=== PATIENT | female | born 1960 | race Caucasian/White ===

== ENCOUNTER 2016-10-08 19:02 | Inpatient (IN) | payer OTHER ==
[~2016-10-08] VITALS: Ht 162.6 cm; Wt 83.5 kg
[~2016-10-08 19:02] MED LIST: LEVO125T3 PO
[2016-10-08 19:06] VITALS: BP 109/66; PULSE 97; RESP 14; TEMP 98.9; O2SAT 98
[2016-10-08 19:40] VITALS: O2SAT 97
--- NOTE | 2016-10-08 19:42 | PD ---
HPI Chief Complaint: Skin Problem Time Seen by Provider: 19:38 Travel History International Travel<30 days: No Contact w/Intl Traveler<30days: No Traveled to known affect area: No History of Present Illness HPI 56-year-old right-hand dominant female with PMH of hypothyroidism, MRSA presents to the ED for evaluation of right elbow pain and swelling. Patient states that she bumped her elbow on 10/02. She states that she thought very little of it, next day when she woke up and the elbow was red and swollen. She states that she went to [facility] on 09/03, was diagnosed with cellulitis, administered a tetanus immunization and prescribed Augmentin and Bactrim. She states that she had x-rays at the time that showed no bony injury. She endorses compliance with the antibiotics but states that the redness has spread. She endorses feeling "achy" and decreased appetite. She denies fever, chills, nausea, vomiting, numbness, tingling, weakness, limitations to range of motion of the extremity. She denies chronic health proms, takes no daily medications. NKDA. PFSH Past Medical History Thyroid Disease: Yes (HYPOACTIVE) Influenza Vaccination: No ?: Not : 1 Para: 1 Past Surgical History Surgical History: No Previous Surgery Section: Yes Social History Alcohol Use: Yes (OCC) Tobacco Use: Yes (1/2 PPD) Substance Use: No Allergies-Medications (Allergen,Severity, Reaction): Coded Allergies: No Known Allergies (Unverified , 10/08/16) Reported Meds & Prescriptions Reported Meds & Active Scripts Active Levothyroxine 125 mcg (Levothyroxine Sodium) 125 Mcg Tab 125 Mcg PO DAILY Review of Systems Except as stated in HPI: all other systems reviewed are Neg Physical Exam Narrative GENERAL: Well-nourished, well-developed white female no acute distress. SKIN: Focused skin assessment warm/dry. There is an edematous area in the right posterior elbow which measures about 4 cm in diameter. There is a subcentimeter crust on the posterolateral aspect of the elbow. It is fluctuant but there is no pointing or drainage. There is a zone of inflammation measuring . There is tender LAD in the right axilla. HEAD: Normocephalic. EYES: No scleral icterus. No injection or drainage. NECK: Supple, trachea midline. No JVD or lymphadenopathy. CARDIOVASCULAR: Regular rate and rhythm without murmurs, gallops, or rubs. RESPIRATORY: Breath sounds equal bilaterally. No accessory muscle use. GASTROINTESTINAL: Abdomen soft, non-tender, nondistended. MUSCULOSKELETAL: No cyanosis, or edema. FOCUSED RIGHT UPPER EXTREMITY EXAM: 2+ radial pulse. TTP of the posterior elbow. Patient retains full, active ROM of the hand, wrist and elbow. Sensation intact to light touch distally. Cap refill less than 2 seconds. BACK: Nontender without obvious deformity. No CVA tenderness. Data Data Last Documented VS Vital Signs Date Time Temp Pulse Resp B/P Pulse Ox O2 Delivery O2 Flow Rate FiO2 10/08/16 19:40 97 Room Air 10/08/16 19:06 98.9 97 14 109/66 Orders Basic Metabolic Panel (Bmp) (10/08/16 19:36) Complete Blood Count With Diff (10/08/16 19:36) Iv Access Insert/Monitor (10/08/16 19:36) Ketorolac Inj (Toradol Inj) (10/08/16 19:45) Clindamycin Inj (Cleocin Inj) (10/08/16 19:45) Sodium Chlor 0.9% 1000 Ml Inj (Ns 1000 M (10/08/16 19:45) Ecg Monitoring (10/08/16 19:36) Oximetry (10/08/16 19:36) Elbow, Limited (Ap&Lat) (10/08/16 20:35) Blood Culture (10/08/16 21:19) Lactic Acid (10/08/16 21:20) Admit Order (Ed Use Only) (10/08/16 21:39) Labs Laboratory Tests Test 10/08/16 19:55 White Blood Count 17.6 TH/MM3 Red Blood Count 4.26 MIL/MM3 Hemoglobin 14.0 GM/DL Hematocrit 40.8 % Mean Corpuscular Volume 95.6 FL Mean Corpuscular Hemoglobin 32.8 PG Mean Corpuscular Hemoglobin 34.3 % Concent Red Cell Distribution Width 13.2 % Platelet Count 317 TH/MM3 Mean Platelet Volume 7.6 FL Neutrophils (%) (Auto) 84.2 % Lymphocytes (%) (Auto) 7.3 % Monocytes (%) (Auto) 7.9 % Eosinophils (%) (Auto) 0.3 % Basophils (%) (Auto) 0.3 % Neutrophils # (Auto) 14.8 TH/MM3 Lymphocytes # (Auto) 1.3 TH/MM3 Monocytes # (Auto) 1.4 TH/MM3 Eosinophils # (Auto) 0.1 TH/MM3 Basophils # (Auto) 0.0 TH/MM3 CBC Comment DIFF FINAL Differential Comment Sodium Level 134 MEQ/L Potassium Level 3.3 MEQ/L Chloride Level 98 MEQ/L Carbon Dioxide Level 24.5 MEQ/L Anion Gap 12 MEQ/L Blood Urea Nitrogen 9 MG/DL Creatinine 0.91 MG/DL Estimat Glomerular Filtration 64 ML/MIN Rate Random Glucose 133 MG/DL Calcium Level 9.4 MG/DL MDM Medical Decision Making Medical Screen Exam Complete: Yes Emergency Medical Condition: Yes Medical Record Reviewed: Yes Differential Diagnosis Abscess versus cellulitis versus bursitis versus septic bursitis versus hematoma versus fracture versus other Narrative Course 56-year-old right-hand dominant female with PMH of hypothyroidism, MRSA presents to the ED for evaluation of right elbow pain and swelling. Patient states that she bumped her elbow on 10/02. She states that the next day when she woke up the elbow was red and swollen. She states that she went to [facility] on 09/03, diagnosed with cellulitis, administered a tetanus immunization and prescribed Augmentin and Bactrim. She states that she had x- rays at the time that showed no bony injury. She endorses compliance with the antibiotics but states that the redness has spread. She endorses feeling "achy. " She denies fever, chills, nausea, vomiting, numbness, tingling, weakness, limitations to range of motion of the extremity. Vitals reviewed. Physical exam reveals a nontoxic-appearing white female in no acute distress. There is an edematous area in the right posterior elbow which measures about 4 cm in diameter. There is a subcentimeter crust on the posterolateral aspect of the elbow. It is fluctuant but there is no pointing or drainage. There is a zone of inflammation measuring 45 cm at the greatest point, spanning from the wrist to the midhumerus. There is tender LAD in the right axilla. Patient retains full, active, painless range of motion of the extremity. IV was established. Blood cultures were obtained. Patient was administered a liter normal saline and 900 mg clindamycin. CBC shows a leukocytosis of 17.6 with a left shift. Lactic acid pending. X-ray of the elbow reveals soft tissue swelling with no bony injury per radiology read. The patient meets sepsis criteria. This is cellulitis versus septic bursitis of the elbow. Plan to admit to medicine. Discussed this plan of care with the patient who is agreeable. Call placed to [facility]. I spoke with Dr. Gallagher who agrees to accept the patient to the medical service. Please see medicine notes for disposition. Sepsis Criteria SIRS Criteria (2 or more): Heart rate over 90, WBC > 24776, < 4000 or > 10% bands Sepsis Criteria (SIRS+source): Infect source susp/known Criteria Outcome: Meets sepsis criteria Caroline Jaime October 08, 2016 19:42
[2016-10-08] MEDS ORDERED: CLINDAMYCIN INJ 900 MG in SODIUM CHLORIDE 0.9% INJ 100 ML IV ONE (19:45)
[2016-10-08] MEDS ORDERED: SODIUM CHLOR 0.9% 1000 ML INJ 1,000 ML IV ONE (19:45)
[2016-10-08] MEDS ORDERED: KETOROLAC TROMETHAMINE 30 MG/ML (IVP) VIAL IVP ONE (19:45)
[2016-10-08 20:25] LABS: AUTOMATED NEUTROPHIL # 14.8 TH/MM3 (1.8-7.7); BASOPHIL % 0.3 % (0.0-2.0); EOSINOPHIL # 0.1 TH/MM3 (0-0.4); EOSINOPHIL % 0.3 % (0.0-4.0); HEMATOCRIT 40.8 % (35.0-46.0); HEMO FLAGS DIFF FINAL; LYMPH % 7.3 % (9.0-44.0); LYMPHOCYTE # 1.3 TH/MM3 (1.0-4.8); MEAN CELL VOLUME 95.6 FL (80.0-100.0); MEAN CORPUSCULAR HEMOGLOBIN 32.8 PG (27.0-34.0); MEAN CORPUSCULAR HGB CONC 34.3 % (32.0-36.0); MONO % 7.9 % (0.0-8.0); NEUT % 84.2 % (16.0-70.0); PLATELET COUNT 317 TH/MM3 (150-450); RED BLOOD COUNT 4.26 MIL/MM3 (4.00-5.30); RED CELL DISTRIBUTION WIDTH 13.2 % (11.6-17.2); WHITE BLOOD COUNT 17.6 TH/MM3 (4.0-11.0)
[2016-10-08 20:47] LABS: BICARBONATE 24.5 MEQ/L (21.0-32.0); POTASSIUM 3.3 MEQ/L (3.5-5.1)
--- NOTE | 2016-10-08 21:06 | RADRPT ---
EXAM DATE/TIME: 10/08/2016 20:52 [facility] COMPARISON: No previous studies available for comparison. INDICATIONS : Right elbow pain and swelling. Patient states she hit her elbow on the car door six days ago. MEDICAL HISTORY : None. SURGICAL HISTORY : None. ENCOUNTER: Initial ACUITY: 4 - 6 days PAIN SCORE: 7/10 LOCATION: Right elbow. FINDINGS: There is prominent soft tissue swelling over the lateral. No evidence of underlying fracture, disloca tion or bony destruction. No joint effusion is present. CONCLUSION: Soft tissue swelling. No acute bony findings Zhou Lozano MD on October 08, 2016 at 21:03 Board Certified Radiologist. This report was verified electronically.
[2016-10-08] MEDS ORDERED: NALOXONE HCL 0.4 MG/ML AMP IV PRN (22:00)
[2016-10-08] MEDS: PIPERACIL-TAZO 4.5 GM PREMIX 100 ML IV SCH (22:00)
[2016-10-08] MEDS ORDERED: POTASSIUM CHLORIDE 20 MEQ CONTROLLED RELEASE TAB PO ONE (22:00)
[2016-10-08] MEDS ORDERED: Vancomycin Consult Pharmacy 1 EA OTHER SCH (22:00)
[2016-10-08] MEDS ORDERED: SODIUM CHLORIDE 0.9% FLUSH 10 ML FLUSH IV FLUSH PRN (22:00)
[2016-10-08 23:04] VITALS: BP 115/70; PULSE 80; RESP 16; TEMP 98.4; O2SAT 98
[2016-10-09] VITALS (9 sets, daily range): BP systolic 93–110; BP diastolic 51–71; PULSE 59–99; RESP 20; TEMP 96.9–99.9; O2SAT 95–98
[2016-10-09] MEDS ORDERED: VANCOMYCIN INJ 1,400 MG in SODIUM CHLORID 0.9% 500 ML INJ 500 ML IV ONE ×2
[2016-10-09] MEDS ORDERED: SODIUM CHLOR 0.9% 1000 ML INJ 1,000 ML IV SCH (01:00)
[2016-10-09] MEDS: ACETAMINOPHEN 500 MG CPLT PO PRN ×4 (01:10→21:51)
--- NOTE | 2016-10-09 04:35 | HHI.HP ---
HPI Service [facility] Primary Care Physician No Primary Care Physician Admission Diagnosis sepsis, cellulitis versus septic bursitis RIGHT elbow Diagnoses: Chief Complaint: Worsening edema and erythema of right elbow Travel History International Travel<30 Days: No Contact w/Intl Traveler <30 Da: No Traveled to Known Affected Are: No History of Present Illness This 56-year-old female patient with past medical history which includes MRSA and hypothyroidism. Patient reports she bumped her elbow on her car door last , 10/02/2016. Patient reports he bump resulted in a, "little tiny cut," but she did not think much of it at that time. Patient reports three days later the right elbow was becoming more edematous with erythema and pain therefore she was seen at outside hospital Thursday was given a tetanus shot and started on Bactrim and Augmentin. Patient reports she's been compliant with both Bactrim and Augmentin despite this the Erythema, edema and pain continued to get worse therefore she proceeded to the ER for further evaluation. Patient did have MRSA in the past. Patient also reports mild generalized myalgia. Patient is noted to have erythema of the right arm from wrist to axilla with edema. Patient does have intact sensation and brisk cap refill and full range of motion. Patient reports the pain feels more like a mild to moderate tightness. Patient believes the erythema has gotten slightly better after antibiotics given in emergency department. Patient denies fevers chills nausea vomiting diarrhea constipation shortness of breath or chest pain. Review of Systems Except as stated in HPI: all other systems reviewed are Neg Past Family Social History Past Medical History MRSA and hypothyroidism. Past Surgical History tonsillectomy, C section Reported Medications Levothyroxine 125 mcg (Levothyroxine Sodium) 125 Mcg Tab 125 Mcg PO DAILY Allergies: Coded Allergies: *MDRO Multi-Drug Resistant Organism (Verified Adverse Reaction, Unknown, ) MRSA (wound)-12/27/13 Active Ordered Medications Current Medications Medications (Trade) Dose Ordered Sig/Woo Route Start Time Stop Time Status Last Admin (NS Flush) 2 ml UNSCH PRN IV FLUSH 10/08/16 22:00 (NS Flush) 2 ml BID IV FLUSH 10/09/16 09:00 Naloxone HCl 0.4 mg 0.4 mg UNSCH PRN IV 10/08/16 22:00 Pharmacy Profile Note 0 ml @ 0 mls/hr UNSCH OTHER 10/08/16 22:00 (Zosyn 4.5 Gm Premix) 100 ml @ 200 mls/hr Q6H IV 10/08/16 22:00 10/09/16 04:44 Acetaminophen 500 mg 500 mg Q6H PRN PO 10/09/16 01:00 10/09/16 01:10 (NS 1000 ml Inj) 1,000 ml @ 84 mls/hr [id number] IV 10/09/16 01:00 10/09/16 12:54 10/09/16 01:10 (Synthroid) 125 mcg DAILY@06 PO 10/09/16 06:00 10/09/16 05:36 Family History Father had colon CA and, "heart problems" Mother had dementia Social History ETOH social not on a daily basis Tobacco 0.5 PPD denies IV drug use Physical Exam Vital Signs Vital Signs Date Time Temp Pulse Resp B/P Pulse Ox O2 Delivery O2 Flow Rate FiO2 10/09/16 01:20 97.3 84 20 98/64 98 10/08/16 23:04 98.4 80 16 115/70 98 Room Air 10/08/16 19:40 97 Room Air 10/08/16 19:06 98.9 97 14 109/66 98 Room Air Physical Exam GENERAL: This is a well-nourished, well-developed patient, with severe edema erythema of right upper extremity from rest to axilla SKIN: edema erythema of right upper extremity from rest to axilla HEAD: Atraumatic. Normocephalic. No temporal or scalp tenderness. EYES: Extraocular motions intact. No scleral icterus. No injection or drainage. CARDIOVASCULAR: Regular rate and rhythm without murmurs, gallops, or rubs. RESPIRATORY: Clear to auscultation. Breath sounds equal bilaterally. No wheezes , rales, or rhonchi. GASTROINTESTINAL: Abdomen soft, non-tender, nondistended. No guarding. MUSCULOSKELETAL: Extremities without clubbing, cyanosis, or edema. No joint tenderness, effusion, or edema noted. No calf tenderness. Negative Homans sign bilaterally. NEUROLOGICAL: Awake and alert. No focal deficits identified. Patient does have intact sensation right upper extremity with full range of motion. Motor and sensory grossly within normal limits. Five out of 5 muscle strength in all muscle groups. Normal speech. Laboratory Laboratory Tests Test 10/08/16 10/08/16 19:55 20:25 White Blood Count 17.6 Red Blood Count 4.26 Hemoglobin 14.0 Hematocrit 40.8 Mean Corpuscular Volume 95.6 Mean Corpuscular Hemoglobin 32.8 Mean Corpuscular Hemoglobin 34.3 Concent Red Cell Distribution Width 13.2 Platelet Count 317 Mean Platelet Volume 7.6 Neutrophils (%) (Auto) 84.2 Lymphocytes (%) (Auto) 7.3 Monocytes (%) (Auto) 7.9 Eosinophils (%) (Auto) 0.3 Basophils (%) (Auto) 0.3 Neutrophils # (Auto) 14.8 Lymphocytes # (Auto) 1.3 Monocytes # (Auto) 1.4 Eosinophils # (Auto) 0.1 Basophils # (Auto) 0.0 CBC Comment DIFF FINAL Differential Comment Sodium Level 134 Potassium Level 3.3 Chloride Level 98 Carbon Dioxide Level 24.5 Anion Gap 12 Blood Urea Nitrogen 9 Creatinine 0.91 Estimat Glomerular Filtration 64 Rate Random Glucose 133 Calcium Level 9.4 Lactic Acid Level 0.8 Date/Time Procedure Status Source Growth 10/08/16 20:25 Aerobic Blood Culture Received Blood Line Pending 10/08/16 20:25 Anaerobic Blood Culture Received Blood Line Pending Result Diagram: 10/08/16195410/08/161954 Imaging Last Impressions Elbow X-Ray 10/08/162034 Signed Impressions: Service Date/Time: Saturday, October 08, 2016 20:52 - CONCLUSION: Soft tissue swelling. No acute bony findings Zhou Lozano MD Assessment and Plan Problem List: (1) Cellulitis ICD Code: L03.90 Status: Acute Assessment and Plan This 56-year-old female patient with past medical history which includes MRSA and hypothyroidism. Patient reports she bumped her elbow on her car door last , 10/02/2016. Patient reports he bump resulted in a, "little tiny cut," but she did not think much of it at that time. Patient reports three days later the right elbow was becoming more edematous with erythema and pain therefore she was seen at outside hospital Thursday was given a tetanus shot and started on Bactrim and Augmentin. Patient reports she's been compliant with both Bactrim and Augmentin despite this the Erythema, edema and pain continued to get worse therefore she proceeded to the ER for further evaluation. Patient did have MRSA in the past. Patient also reports mild generalized myalgia. Patient is noted to have erythema of the right arm from wrist to axilla with edema. Patient denies fevers chills nausea vomiting diarrhea constipation shortness of breath or chest pain. R upper extremity cellulitis possible abscess Leukocytosis CT right upper extremity with IV contrast to evaluate for abscess Right elbow x-ray reveals: Soft tissue swelling. No acute bony findings Clindamycin IV and Vanco IV started in emergency department will continue IV vancomycin with pharmacy to dose Will add Zosyn IV Hypokalemia replaced Recheck this a.m. Hypothyroidism chronic stable Continue home Synthroid dose 0.125 mg by mouth daily DVT prophylaxis with SCDs Discussed with care provider, nursing inpatient Written by Swati Mccallum, acting as scribe for Dr. Gallagher on 10/09/16 at 05: 56. This note was transcribed by scribe [Swati Mccallum]. I, Dr. Eladio Gallagher personally performed the history, physical exam, and medical decision making; and confirmed the accuracy of the information in the transcribed note. Authenticated by Dr. Eladio Gallagher on 10/09/16 at 05:56. Physician Certification 2 Midnight Certification Type: Admission for Inpatient Services Order for Inpatient Services The services are ordered in accordance with Medicare regulations or non- Medicare payer requirements, as applicable. In the case of services not specified as inpatient-only, they are appropriately provided as inpatient services in accordance with the 2-midnight benchmark. Estimated LOS (days): 2 days is the estimated time the patient will need to remain in the hospital, assuming treatment plan goals are met and no additional complications. Post-Hospital Plan: [place] Swati Mccallum October 09, 2016 04:35 Eladio Gallagher MD October 09, 2016 08:28
[2016-10-09] MEDS: PIPERACIL-TAZO 4.5 GM PREMIX 100 ML IV SCH ×4 (04:44→21:50)
[2016-10-09] MEDS: LEVOTHYROXINE SODIUM 125 MCG TAB PO SCH (05:36)
[2016-10-09 07:32] LABS: AUTOMATED NEUTROPHIL # 13.2 TH/MM3 (1.8-7.7); BASOPHIL % 0.2 % (0.0-2.0); EOSINOPHIL # 0.1 TH/MM3 (0-0.4); EOSINOPHIL % 0.5 % (0.0-4.0); HEMATOCRIT 35.7 % (35.0-46.0); HEMO FLAGS DIFF FINAL; LYMPH % 5.9 % (9.0-44.0); LYMPHOCYTE # 0.9 TH/MM3 (1.0-4.8); MEAN CELL VOLUME 96.1 FL (80.0-100.0); MEAN CORPUSCULAR HEMOGLOBIN 32.6 PG (27.0-34.0); NEUT % 83.4 % (16.0-70.0); PLATELET COUNT 285 TH/MM3 (150-450); RED BLOOD COUNT 3.72 MIL/MM3 (4.00-5.30); RED CELL DISTRIBUTION WIDTH 13.1 % (11.6-17.2); WHITE BLOOD COUNT 15.8 TH/MM3 (4.0-11.0)
[2016-10-09 07:55] LABS: BICARBONATE 19.2 MEQ/L (21.0-32.0); POTASSIUM 3.6 MEQ/L (3.5-5.1)
[2016-10-09] MEDS ORDERED: IOHEXOL 350 MG/ML 10 ML VIAL (for RAD DIAG) IV ONE (08:05)
--- NOTE | 2016-10-09 08:23 | RADRPT ---
EXAM DATE/TIME: 10/09/2016 07:55 [facility] COMPARISON: No previous studies available for comparison. INDICATIONS : Right elbow cellulitis, abscess. Redness and swelling IV CONTRAST: 71 cc Omnipaque 350 (iohexol) IV RADIATION DOSE: 11.55 CTDIvol (mGy) MEDICAL HISTORY : None SURGICAL HISTORY : None. ENCOUNTER: Initial ACUITY: 1 day PAIN SCALE: 8/10 LOCATION: Right arm TECHNIQUE: Volumetric scanning of the elbow was performed. Using automated exposure control and adjustment of t he mA and/or kV according to patient size, radiation dose was kept as low as reasonably achievable to obtain optimal diagnostic quality images. FINDINGS: BONES: No evidence of fracture. Alignment is within normal limits. JOINTS: No evidence of joint narrowing or effusion. SOFT TISSUES: Muscles, tendons and neurovascular structures are grossly unremarkable. There is a fluid collection i n the superficial soft tissues posteriorly measuring 3.9 x 6.1 x 1.9 cm. This is seen posterior to th e olecranon and elbow joint. There is cellulitis of the adjacent soft tissues. CONCLUSION: Cellulitis with small abscess along the posterior elbow seen within the posterior soft tissues. Maycol Magana MD on October 09, 2016 at 8:17 Board Certified Radiologist. This report was verified electronically.
[2016-10-09] MEDS: SODIUM CHLORIDE 0.9% FLUSH 10 ML FLUSH IV FLUSH SCH ×2 (09:00→21:00)
--- NOTE | 2016-10-09 09:05 | PD.ORT.PN ---
Subjective Subjective Remarks s/p injury to right elbow on car door approx 1 week ago swelling progressed over time. came to ER today. reports right elbow pain, swelling, redness. Objective Vitals Vital Signs Date Time Temp Pulse Resp B/P Pulse Ox O2 Delivery O2 Flow Rate FiO2 10/09/16 08:31 98.8 81 20 98/55 97 10/09/16 06:14 97.8 79 20 103/70 98 10/09/16 01:20 97.3 84 20 98/64 98 10/08/16 23:04 98.4 80 16 115/70 98 Room Air 10/08/16 19:40 97 Room Air 10/08/16 19:06 98.9 97 14 109/66 98 Room Air I/O 10/08/16 10/08/16 10/08/16 10/09/16 10/09/16 10/09/16 07:00 15:00 23:00 07:00 15:00 23:00 Intake Total 805 ml Balance 805 ml Intake IV Total 805 ml # Voids 2 Result Diagram: 10/09/16 0647 10/09/16 0647 Imaging Last 24 hours Impressions Upper Extremity CT 10/09/1603 Signed Impressions: Service Date/Time: September 07:55 - CONCLUSION: Cellulitis with small abscess along the posterior elbow seen within the posterior soft tissues. Maycol Magana MD Elbow X-Ray 10/08/162034 Signed Impressions: Service Date/Time: Saturday, October 08, 2016 20:52 - CONCLUSION: Soft tissue swelling. No acute bony findings Zhou Lozano MD Objective Remarks RUE: significant localized swelling of olecranon. +fluctuance. no drainage. + pain. ROM 5-135deg. pain with maximal extension. noted erythema from posterior triceps extending over olecranon and distally to wrist. NVI. full sensation to median/ulnar nerve. full radial nerve function. Assessment & Plan Assessment and Plan 1) Right Olecranon Abscess -will benefit from I&D -NPO after MN -sign consents -plan for surgery tomorrow Jd Oswald October 09, 2016 09:05
[2016-10-09] MEDS ORDERED: METOPROLOL TARTRATE 25 MG TAB PO PRN (11:15)
[2016-10-09] MEDS ORDERED: LACTATED RINGER'S 1000 ML IV PRN (11:15)
[2016-10-09] MEDS ORDERED: POVIDONE IODINE 5% (ANTISEPSIS KIT) 4 APPLICATIONS EACH NARE PRN (11:15)
[2016-10-09] MEDS ORDERED: CHLORHEXIDINE GLUCONATE 2 % 1 PACK (2 CLOTHS) TOPICAL PRN (11:15)
[2016-10-09] MEDS ORDERED: SODIUM CHLORID 0.9% 500 ML IV PRN (11:15)
[2016-10-09] MEDS ORDERED: INSULIN HUMAN REGULAR 1,000 UNITS/10 ML VIAL SQ PRN (11:15)
--- NOTE | 2016-10-09 12:02 | HHI.PR ---
Subjective Remarks resting comfortably with no distress. no fever. pain to the right elbow is mild. no other complaints. Objective Vitals Vital Signs Date Time Temp Pulse Resp B/P Pulse Ox O2 Delivery O2 Flow Rate FiO2 10/09/16 08:31 98.8 81 20 98/55 97 10/09/16 06:14 97.8 79 20 103/70 98 10/09/16 01:20 97.3 84 20 98/64 98 10/08/16 23:04 98.4 80 16 115/70 98 Room Air 10/08/16 19:40 97 Room Air 10/08/16 19:06 98.9 97 14 109/66 98 Room Air I/O 10/08/16 10/08/16 10/08/16 10/09/16 10/09/16 10/09/16 07:00 15:00 23:00 07:00 15:00 23:00 Intake Total 805 ml Balance 805 ml Intake IV Total 805 ml # Voids 2 Result Diagram: 10/09/16 0647 10/09/16 0647 Imaging Last Impressions Upper Extremity CT 10/09/1603 Signed Impressions: Service Date/Time: September 07:55 - CONCLUSION: Cellulitis with small abscess along the posterior elbow seen within the posterior soft tissues. Maycol Magana MD Elbow X-Ray 10/08/162034 Signed Impressions: Service Date/Time: Saturday, October 08, 2016 20:52 - CONCLUSION: Soft tissue swelling. No acute bony findings Zhou Lozano MD Objective Remarks GENERAL: This is a well-nourished, well-developed patient, in no apparent distress. CARDIOVASCULAR: Regular rate and regular rhythm without murmurs, gallops, or rubs. RESPIRATORY: Clear to auscultation. Breath sounds equal bilaterally. No wheezes , rales, or rhonchi. GASTROINTESTINAL: Abdomen soft, non-tender, nondistended. Normal, active bowel sounds MUSCULOSKELETAL: right elbow is swollen, mildly tender along with erythema over the right arm NEURO: Alert & Oriented x4 to person, place, time, situation. Moves all ext x4 Procedures none Medications and IVs Current Medications Ketorolac Tromethamine 30 mg 30 mg ONCE ONCE IVP Last administered on t 21:28; Start 10/08/16 at 19:45; Stop 10/08/16 at 19:46; Status DC Clindamycin Phosphate 900 mg/ Sodium Chloride 106 ml @ 200 mls/hr ONCE ONCE IV Last administered on 10/08/16 21:30; Start 10/08/16 at 19:45; Stop at 20:16; Status DC Sodium Chloride (NS 1000 ml Inj) 1,000 ml @ 999 mls/hr BOLUS ONCE IV Last administered on 10/08/16 21:28; Start 10/08/16 at 19:45; Stop 10/08/16 at 20:45 ; Status DC Sodium Chloride (NS Flush) 2 ml UNSCH PRN IV FLUSH FLUSH AFTER USING IV ACCESS ; Start 10/08/16 at 22:00 Sodium Chloride (NS Flush) 2 ml BID IV FLUSH ; Start 10/09/16 at 09:00 Naloxone HCl (Narcan Inj) 0.4 mg UNSCH PRN IV SEE LABEL COMMENTS; Start at 22:00 Potassium Chloride 40 meq 40 meq ONCE ONCE PO Last administered on 10/08/16 22:00; Start 10/08/16 at 22:00; Stop 10/08/16 at 22:01; Status DC Pharmacy Profile Note 0 ml @ 0 mls/hr UNSCH OTHER ; Start 10/08/16 at 22:00 Piperacillin Sod/ Tazobactam Sod 100 ml @ 200 mls/hr Q6H IV Last administered on 10/09/16 04:44; Start 10/08/16 at 22:00 Vancomycin HCl/ Sodium Chloride (Vancomycin Inj/ NS 500 ml Inj) 514 ml @ 250 mls/hr ONCE ONCE IV Last administered on 10/09/16 00:35; Start 10/09/16 at 00 :00; Stop 10/09/16 at 02:03; Status DC Acetaminophen 500 mg 500 mg Q6H PRN PO pain 1-10 Last administered on 01:10; Start 10/09/16 at 01:00 Sodium Chloride (NS 1000 ml Inj) 1,000 ml @ 84 mls/hr [id number] IV Last administered on 10/09/16 01:10; Start 10/09/16 at 01:00; Stop 10/09/16 at 12:54 Levothyroxine Sodium (Synthroid) 125 mcg DAILY@06 PO Last administered on t 05:36; Start 10/09/16 at 06:00 Iohexol 70 ml 70 ml STK-MED ONCE IV Last administered on 10/09/16t 08:05; Start 10/09/16 at 08:05; Stop 10/09/16 at 08:06; Status DC Vancomycin HCl/ Sodium Chloride (Vancomycin Inj/ NS 250 ml Inj) 262.5 ml @ 262.5 mls/ hr Q12H IV ; Start 10/09/16 at 14:00 Miscellaneous Information SPECIFIC LAB TO BE ... ONCE ONCE .XX ; Start 10/10 at 13:45; Stop 10/10/16 at 13:46 Lactated Ringer's 1,000 ml @ 30 mls/hr Q24H PRN IV SEE LABEL COMMENTS; Start at 11:15; Stop 10/12/16 at 11:14 Sodium Chloride (NS 500 ml Inj) 500 ml @ 30 mls/hr [id number] PRN IV SEE LABEL COMMENTS; Start 10/09/16 at 11:15; Stop 10/12/16 at 11:14 Metoprolol Tartrate (Lopressor) 25 mg MOBILE ARCHITECT PRN PO SEE LABEL COMMENTS; Start 10/09/16 at 11:15; Stop 10/12/16 at 11:14 Povidone Iodine (Betadine 5% Antisepsis Kit) 1 applic MOBILE ARCHITECT PRN EACH NARE SEE LABEL COMMENTS; Start 10/09/16 at 11:15; Stop 10/12/16 at 11:14 Chlorhexidine Gluconate (Chlorhexidine 2% Cloth) 3 pack MOBILE ARCHITECT PRN TOPICAL SEE LABEL COMMENTS; Start 10/09/16 at 11:15; Stop 10/12/16 at 11:14 Insulin Human Regular (NovoLIN R INJ) See Protocol Table ... MOBILE ARCHITECT PRN SQ SEE PROTOCOL TABLE; Start 10/09/16 at 11:15; Stop 10/12/16 at 11:14 A/P Assessment and Plan A/P R upper extremity cellulitis possible abscess Leukocytosis CT right upper extremity with Cellulitis with small abscess along the posterior elbow seen within the posterior soft tissues. continue with IV Vanco and Zosyn ortho consult appreciated and plan for I/D tomorrow. continue with pain control Hypokalemia replaced Hypothyroidism chronic stable Continue home Synthroid dose 0.125 mg by mouth daily DVT prophylaxis with SCDs Mayte Mcneill MD October 09, 2016 12:02
[2016-10-09] MEDS: VANCOMYCIN INJ 1,250 MG in SODIUM CHLOR 0.9% 250 ML INJ 250 ML IV SCH (15:18)
--- NOTE | 2016-10-09 20:28 | EKG ---
Date Performed: 10/09/2016 Time Performed: 16:13:40 PTAGE: 56 years EKG: Sinus rhythm NORMAL ECG NO PREVIOUS TRACING DOCTOR: Larry Hogan Interpretating Date/Time 10/09/2016 20:26:36
[2016-10-10] VITALS (8 sets, daily range): BP systolic 80–111; BP diastolic 53–69; PULSE 67–89; RESP 20; TEMP 95.3–98.4; O2SAT 96–98
[2016-10-10] MEDS: VANCOMYCIN INJ 1,250 MG in SODIUM CHLOR 0.9% 250 ML INJ 250 ML IV SCH ×2 (02:08→15:30)
[2016-10-10] MEDS: ACETAMINOPHEN 500 MG CPLT PO PRN (03:57)
[2016-10-10] MEDS: PIPERACIL-TAZO 4.5 GM PREMIX 100 ML IV SCH ×4 (03:58→21:00)
[2016-10-10] MEDS ORDERED: SODIUM CHLORID 0.9% 500 ML INJ 500 ML IV SCH (05:15)
[2016-10-10] MEDS: LEVOTHYROXINE SODIUM 125 MCG TAB PO SCH (05:35)
[2016-10-10] MEDS ORDERED: VANCOMYCIN HCL 1000 MG VIAL ONE (07:20)
[2016-10-10] MEDS ORDERED: ceFAZolin INJ 1,000 MG VIAL ONE (07:21)
--- NOTE | 2016-10-10 07:28 | MB ---
cc: MARCOS HUYNH DATE OF ADMISSION 10/08/2016 DATE OF CONSULTATION 10/10/2016 REASON FOR CONSULTATION Right elbow infected bursitis. CONSULTING PHYSICIAN Dr. Mcneill EUNICE Gardiner is a 56-hour-old female who has a previous history of MRSA infections. She also has hypothyroidism. She states that she bumped her elbow on her car approximately one week ago. She had a very small abrasion at that time. Over the past several days she has had increasing pain and swelling. She was seen and outside hospital earlier this week and started on Bactrim and Augmentin. Pain and swelling have worsened. Her only complaint is her right elbow. She feels that it is tight. She does not have a lot of pain with gentle elbow motion. She has had some low grade fevers and chills. PAST MEDICAL HISTORY ILLNESSES 1. Hypothyroidism. 2. Previous infection with MRSA. SURGERIES 1. Tonsillectomy. 2. . MEDICATIONS Levothyroxine. ALLERGIES None. FAMILY HISTORY Positive for colon cancer in her father and dementia in her mother. SOCIAL HISTORY The patient smokes half-pack a day. She denies drug use. She drinks alcohol socially. REVIEW OF SYSTEMS The patient denies headache, visual changes, neck pain, chest pain, shortness of breath, abdominal pain, nausea or recent weight loss. She complains of right elbow pain and stiffness. PHYSICAL EXAMINATION GENERAL: The patient is a well-developed, well-nourished 56-year-old female who is awake and alert. She is alert and oriented x 3. VITAL SIGNS: Temperature 98.0, pulse 80, respirations 20, blood pressure 104/67, O2 sat 98% on room air. HEAD: The patient is normocephalic. Pupils are equal. NECK: Soft, nontender. Trachea is midline. ABDOMEN: Soft, nontender, nondistended. EXTREMITIES: Examination of the right arm reveals no tenderness around her shoulder, wrist or fingers. She has intact sensation in all fingers. She has good capillary refill in all fingers. Examination of her elbow reveals a large area of swelling and redness over the olecranon bursa. There is fluctuance noted. Elbow range of motion is from 20 degrees to 120 degrees with minimal pain. Examination of left arm reveals no pain with shoulder, elbow or wrist motion. Skin is intact. Radial pulses palpable. Sensation is intact. Examination of the bilateral lower extremities reveals no significant pain with hip, knee or ankle motion. Skin is intact. Dorsalis pedis pulses are palpable. X-RAYS X-rays of the right elbow were reviewed. X-rays reveal no evidence of acute fracture or dislocation. IMPRESSION Right elbow septic bursitis. PLAN Treatment options were discussed with the patient. At this point I would recommend irrigation and debridement of right elbow. The risks of surgery include bleeding, infection, injury to arteries, nerves, blood vessels, recurrent infection as well as medical complications associated anesthesia. All questions were answered. I will plan on surgery today. A mid-level provider in my office (nurse practitioner or physician head start assistant teacher) may see this patient on follow-up visits and continue to implement the objectives of this plan including: Starting or adjusting medications, injections , cast application, orthotics, brace application, physical therapy, radiological studies (including x-ray, MRI, CT, ultrasound, bone scan), vascular studies, neurologic studies, specialist consultation, and proceeding with surgical management, as appropriate. MD KVNG Clifton/CHELITA /6:54 AM /7:16 AM SUSANA
[2016-10-10] MEDS ORDERED: GENTAMICIN SULFATE 80 MG/2 ML VIAL ONE (07:36)
[2016-10-10] MEDS ORDERED: FAMOTIDINE 20 MG/2 ML VIAL ONE (07:37)
[2016-10-10] MEDS ORDERED: MIDAZOLAM HCL 2 MG/2 ML VIAL ONE (07:37)
--- NOTE | 2016-10-10 08:41 | PD.OP ---
cc: Sandeep Hills MD Operative Report Date of Surgery: October 10, 2016 Preoperative Diagnosis: Right elbow septic olecranon bursitis Postoperative Diagnosis: Procedure: Irrigation and debridement right elbow abscess excision of olecranon bursa Anesthesia: Gen. Surgeon: Sandeep Hills Large Animal Veterinarian(s): LION Gunter PA-C The surgical procedure was assisted by my physician television production assistant. My P.A. presence was necessary throughout this case for the manipulation and positioning of the surgical extremity. My P.A. was assisting me throughout the duration of this procedure. The skill set of a physician television production assistant was medically necessary to complete this procedure. During the surgical case the director surgical was working at the back table and the physician television production assistant was directly assisting me. Operation and Findings: Patient was seen and evaluated preoperatively. Patient was found to have infection of the olecranon bursa. Fluctuance and erythema were noted. Informed consent was obtained after detailed discussion of risk and benefits of surgery. Operative site was marked. Patient was brought to the operating room. IV sedation and GETA were administered by anesthesiologist. Operative arm was prepped with alcohol followed by Hibiclens and draped in usual sterile fashion. Timeout procedure was performed. Procedure began with a 4 cm incision over the olecranon bursa. Subcutaneous tissue dissected with Bovie. A large pocket of purulent material was found. Specimen was obtained for cultures and sensitivities. Curettes and rongeurs were now used to sharply debride the olecranon bursa. Curettes were also used to debride the olecranon. After excisional debridement was complete, the wound was thoroughly irrigated with sterile saline. At this point the wound was clean. Subcutaneous tissues closed with 3-0 PDS and skin was closed with 3-0 nylon. A LALITA drain was placed into the wound. Sterile dressings were applied. Patient was awakened and transferred to recovery in stable condition. Needle and sponge counts were correct. Sandeep Hills MD October 10, 2016 08:41
[2016-10-10] MEDS ORDERED: Post-op Orders (for Pharmacy) MISC XX ONE (08:45)
[2016-10-10] MEDS ORDERED: ONDANSETRON HCL 4 MG/2 ML VIAL IVP PRN (08:45)
[2016-10-10] MEDS ORDERED: SODIUM CHLORIDE 0.9% FLUSH 5 ML FLUSH IVF PRN (08:45)
[2016-10-10] MEDS ORDERED: MORPHINE SULFATE 4 MG/ML INJ IV PUSH PRN (08:45)
[2016-10-10] MEDS ORDERED: fentaNYL CITRATE 250 MCG/5 ML AMP ONE (08:57)
[2016-10-10] MEDS ORDERED: SODIUM CHLORIDE 0.9% FLUSH 5 ML FLUSH IVF SCH (09:00)
[2016-10-10] MEDS ORDERED: *morphine SULFATE 8 MG/ML PERIprocedure ONLY ONE (09:09)
--- NOTE | 2016-10-10 09:34 | PD.ORT.PN ---
Subjective Subjective Remarks POD 0 s/p I&D right elbow Objective Vitals Vital Signs Date Time Temp Pulse Resp B/P Pulse Ox O2 Delivery O2 Flow Rate FiO2 10/10/16 08:52 97.7 83 15 123/68 99 Nasal Cannula 2 10/10/16 06:46 98.0 80 20 104/67 98 10/10/16 06:04 95.3 77 20 80/53 98 10/10/16 00:45 98.4 89 20 93/62 97 10/09/16 20:56 99.3 99 20 98/67 98 10/09/16 19:46 93 10/09/16 19:05 79 10/09/16 16:00 99.9 86 20 110/71 97 10/09/16 12:00 99.4 80 20 93/55 97 I/O 10/09/16 10/09/16 10/09/16 10/10/16 10/10/16 10/10/16 06:59 14:59 22:59 06:59 14:59 22:59 Intake Total 805 ml 480 ml 1300 ml Output Total 100 ml Balance 805 ml 480 ml 1200 ml Intake Oral 480 ml IV Total 805 ml 700 ml Other 600 ml Estimated Blood Loss 100 ml # Voids 2 5 4 # Bowel Movements 1 1 Result Diagram: 10/09/16 0647 10/10/16 0640 Imaging Last 24 hours Impressions Upper Extremity CT 10/09/16 0703 Signed Impressions: Service Date/Time: September 07:55 - CONCLUSION: Cellulitis with small abscess along the posterior elbow seen within the posterior soft tissues. Maycol Magana MD Elbow X-Ray 10/08/162034 Signed Impressions: Service Date/Time: Saturday, October 08, 2016 20:52 - CONCLUSION: Soft tissue swelling. No acute bony findings Zhou Lozano MD Objective Remarks RUE: dressings clean and dry. intact. +drain. NVI Assessment & Plan Assessment and Plan 1) Right Olecranon Abscess s/p I&D - POD 0 -WBAT -daily dressing changes POD 2 -plan for DC of drain POD 3 -infectious disease for Abx pending cultures -patient will be hospitalized until cultures are done and Abx are tailored and set up for home -will follow up in office with Dr Jenkins or PA in 2 weeks Jd Oswald PA October 10, 2016 09:34
[2016-10-10] MEDS ORDERED: DO NOT ADM ANY ANTICOAGULANT DRUGS PRN (09:45)
[2016-10-10] MEDS: ACETAMINOPHEN/HYDROcodone 325 MG/7.5 MG TAB PO PRN ×3 (10:28→20:58)
[2016-10-10] MEDS ORDERED: PHENYLEPH/NS 1000 MCG/10 ML SYR IV ONE (12:00)
[2016-10-10] MEDS ORDERED: ONDANSETRON HCL 4 MG/2 ML VIAL IV PUSH ONE (12:00)
[2016-10-10] MEDS ORDERED: PROPOFOL 200 MG/20 ML AMP IV ONE (12:00)
[2016-10-10] MEDS ORDERED: KETOROLAC TROMETHAMINE 60 MG/2 ML (IM) VIAL IM ONE (12:00)
--- NOTE | 2016-10-10 12:43 | HHI.PR ---
Subjective Remarks resting comfortably with no distress. pain to the right elbow is mild . no fever. Objective Vitals Vital Signs Date Time Temp Pulse Resp B/P Pulse Ox O2 Delivery O2 Flow Rate FiO2 10/10/16 09:30 97.7 75 16 107/67 100 Room Air 10/10/16 09:15 74 16 106/65 100 Room Air 10/10/16 09:00 76 15 96/53 100 Nasal Cannula 2 10/10/16 08:52 97.7 83 15 123/68 99 Nasal Cannula 2 10/10/16 06:46 98.0 80 20 104/67 98 10/10/16 06:04 95.3 77 20 80/53 98 10/10/16 00:45 98.4 89 20 93/62 97 10/09/16 20:56 99.3 99 20 98/67 98 10/09/16 19:46 93 10/09/16 19:05 79 10/09/16 16:00 99.9 86 20 110/71 97 I/O 10/09/16 10/09/16 10/09/16 10/10/16 10/10/16 10/10/16 06:59 14:59 22:59 06:59 14:59 22:59 Intake Total 805 ml 480 ml 1500 ml Output Total 100 ml Balance 805 ml 480 ml 1400 ml Intake Oral 480 ml IV Total 805 ml 900 ml Other 600 ml Estimated Blood Loss 100 ml # Voids 2 5 4 # Bowel Movements 1 1 Result Diagram: 10/09/16 0647 10/10/16 0640 Imaging Last Impressions Upper Extremity CT 10/09/16 0703 Signed Impressions: Service Date/Time: September 07:55 - CONCLUSION: Cellulitis with small abscess along the posterior elbow seen within the posterior soft tissues. Maycol Magana MD Elbow X-Ray 10/08/162034 Signed Impressions: Service Date/Time: Saturday, October 08, 2016 20:52 - CONCLUSION: Soft tissue swelling. No acute bony findings Zhou Lozano MD Objective Remarks GENERAL: This is a well-nourished, well-developed patient, in no apparent distress. CARDIOVASCULAR: Regular rate and regular rhythm without murmurs, gallops, or rubs. RESPIRATORY: Clear to auscultation. Breath sounds equal bilaterally. No wheezes , rales, or rhonchi. GASTROINTESTINAL: Abdomen soft, non-tender, nondistended. Normal, active bowel sounds MUSCULOSKELETAL: right elbow is covered with clean dressing. NEURO: Alert & Oriented x4 to person, place, time, situation. Moves all ext x4 Procedures Irrigation and debridement right elbow abscess excision of olecranon bursa Medications and IVs Current Medications Ketorolac Tromethamine 30 mg 30 mg ONCE ONCE IVP Last administered on 21:28; Start 10/08/16 at 19:45; Stop 10/08/16 at 19:46; Status DC Clindamycin Phosphate 900 mg/ Sodium Chloride 106 ml @ 200 mls/hr ONCE ONCE IV Last administered on 10/08/16 21:30; Start 10/08/16 at 19:45; Stop at 20:16; Status DC Sodium Chloride (NS 1000 ml Inj) 1,000 ml @ 999 mls/hr BOLUS ONCE IV Last administered on 10/08/16 21:28; Start 10/08/16 at 19:45; Stop 10/08/16 at 20:45 ; Status DC Sodium Chloride (NS Flush) 2 ml UNSCH PRN IV FLUSH FLUSH AFTER USING IV ACCESS ; Start 10/08/16 at 22:00 Sodium Chloride (NS Flush) 2 ml BID IV FLUSH ; Start 10/09/16 at 09:00 Naloxone HCl (Narcan Inj) 0.4 mg UNSCH PRN IV SEE LABEL COMMENTS; Start at 22:00 Potassium Chloride 40 meq 40 meq ONCE ONCE PO Last administered on 10/08/16 22:00; Start 10/08/16 at 22:00; Stop 10/08/16 at 22:01; Status DC Pharmacy Profile Note 0 ml @ 0 mls/hr UNSCH OTHER ; Start 10/08/16 at 22:00 Piperacillin Sod/ Tazobactam Sod 100 ml @ 200 mls/hr Q6H IV Last administered on 10/10/16 10:00; Start 10/08/16 at 22:00 Vancomycin HCl/ Sodium Chloride (Vancomycin Inj/ NS 500 ml Inj) 514 ml @ 250 mls/hr ONCE ONCE IV Last administered on 10/09/16 00:35; Start 10/09/16 at 00 :00; Stop 10/09/16 at 02:03; Status DC Acetaminophen 500 mg 500 mg Q6H PRN PO pain 1-10 Last administered on 03:57; Start 10/09/16 at 01:00; Stop 10/10/16 at 09:35; Status DC Sodium Chloride (NS 1000 ml Inj) 1,000 ml @ 84 mls/hr [id number] IV Last administered on 10/09/16 01:10; Start 10/09/16 at 01:00; Stop 10/09/16 at 12:54 ; Status DC Levothyroxine Sodium (Synthroid) 125 mcg DAILY@06 PO Last administered on 05:35; Start 10/09/16 at 06:00 Iohexol 70 ml 70 ml STK-MED ONCE IV Last administered on 10/09/16 08:05; Start 10/09/16 at 08:05; Stop 10/09/16 at 08:06; Status DC Vancomycin HCl/ Sodium Chloride (Vancomycin Inj/ NS 250 ml Inj) 262.5 ml @ 262.5 mls/ hr Q12H IV Last administered on 10/10/16 02:08; Start 10/09/16 at 14:00 Miscellaneous Information SPECIFIC LAB TO BE ... ONCE ONCE .XX ; Start 10/10 at 13:45; Stop 10/10/16 at 13:46 Lactated Ringer's 1,000 ml @ 30 mls/hr Q24H PRN IV SEE LABEL COMMENTS; Start at 11:15; Stop 10/12/16 at 11:14 Sodium Chloride (NS 500 ml Inj) 500 ml @ 30 mls/hr [id number] PRN IV SEE LABEL COMMENTS; Start 10/09/16 at 11:15; Stop 10/12/16 at 11:14 Metoprolol Tartrate (Lopressor) 25 mg WATCH CRYSTAL GRINDER PRN PO SEE LABEL COMMENTS; Start 10/09/16 at 11:15; Stop 10/12/16 at 11:14 Povidone Iodine (Betadine 5% Antisepsis Kit) 1 applic WATCH CRYSTAL GRINDER PRN EACH NARE SEE LABEL COMMENTS; Start 10/09/16 at 11:15; Stop 10/12/16 at 11:14 Chlorhexidine Gluconate (Chlorhexidine 2% Cloth) 3 pack WATCH CRYSTAL GRINDER PRN TOPICAL SEE LABEL COMMENTS; Start 10/09/16 at 11:15; Stop 10/12/16 at 11:14 Insulin Human Regular See Protocol Table ... WATCH CRYSTAL GRINDER PRN SQ SEE PROTOCOL TABLE ; Start 10/09/16 at 11:15; Stop 10/12/16 at 11:14 Sodium Chloride (NS 500 ml Inj) 500 ml @ 250 mls/hr Q2H IV Last administered on 10/10/16 05:35; Start 10/10/16 at 05:15; Stop 10/10/16 at 07:14; Status DC Vancomycin HCl (Vancomycin Inj) 1,000 mg STK-MED ONCE .ROUTE ; Start 10/10/16 at 07:20; Stop 10/10/16 at 07:21; Status DC Cefazolin Sodium (Ancef Inj) 2,000 mg STK-MED ONCE .ROUTE ; Start 10/10/16 at 07 :21; Stop 10/10/16 at 07:22; Status DC Gentamicin Sulfate (Gentamicin Inj) 240 mg STK-MED ONCE .ROUTE Last administered on 10/10/16 08:27; Start 10/10/16 at 07:36; Stop 10/10/16 at 07:37 ; Status DC Famotidine (Pepcid Inj) 20 mg STK-MED ONCE .ROUTE ; Start 10/10/16 at 07:37; Stop 10/10/16 at 07:38; Status DC Midazolam HCl (Versed Inj) 2 mg STK-MED ONCE .ROUTE ; Start 10/10/16 at 07:37; Stop 10/10/16 at 07:38; Status DC IV Flush (NS Flush) 2 ml UNSCH PRN IVF FLUSH AFTER USING IV ACCESS; Start 10/10 at 08:45; Status UNV IV Flush (NS Flush) 2 ml BID IVF ; Start 10/10/16 at 09:00; Status UNV Miscellaneous Information (Post-op Orders (for Pharmacy)) STAT ONCE XX ; Start 10/10/16 at 08:45; Stop 10/10/16 at 09:36; Status DC Acetaminophen/ Hydrocodone Bitart (Pantego 7.5-325 Mg) 1 tab Q4H PRN PO PAIN LESS THAN 5 ON SCALE Last administered on 10/10/16 10:28; Start 10/10/16 at 08: 45 Acetaminophen/ Hydrocodone Bitart (Pantego 7.5-325 Mg) 2 tab Q6H PRN PO PAIN GREATER THAN/EQUAL TO 5; Start 10/10/16 at 08:45 Ondansetron HCl (Zofran Inj) 4 mg Q4H PRN IVP NAUSEA OR VOMITING; Start at 08:45 Morphine Sulfate (Morphine Inj) 4 mg Q3H PRN IV PUSH break thru pain; Start 05/17 at 08:45 Fentanyl Citrate (fentaNYL INJ) 250 mcg STK-MED ONCE .ROUTE ; Start 10/10/16 at 08:57; Stop 10/10/16 at 08:58; Status DC Morphine Sulfate (*morphine INJ PERIprocedure ONLY) 8 mg STK-MED ONCE .ROUTE Last administered on 10/10/16 09:09; Start 10/10/16 at 09:09; Stop 10/10/16 at 09:10; Status DC Miscellaneous Information ALL NURSING DEPARTME... UNSCH PRN .XX SEE LABEL COMMENTS; Start 10/10/16 at 09:45; Stop 10/11/16 at 09:44 A/P Assessment and Plan A/P R upper extremity cellulitis possible abscess Leukocytosis CT right upper extremity with Cellulitis with small abscess along the posterior elbow seen within the posterior soft tissues. s/p Irrigation and debridement right elbow abscess excision of olecranon bursa continue with IV Vanco and Zosyn consult ID and follow the cultures continue with pain control Hypokalemia replaced Hypothyroidism chronic stable Continue home Synthroid dose 0.125 mg by mouth daily DVT prophylaxis with SCDs Mayte Mcneill MD October 10, 2016 12:43
[2016-10-10] MEDS ORDERED: PHARMACY ORDERED LAB ONE (13:45)
[2016-10-10] MEDS: SODIUM CHLORIDE 0.9% FLUSH 10 ML FLUSH IV FLUSH SCH (20:59)
[2016-10-11] VITALS: BP 115/65; PULSE 70; RESP 20; TEMP 96.2; O2SAT 97
[2016-10-11] MEDS ORDERED: VANCOMYCIN 1,500 MG/NS 500 ML IV SCH ×2 (02:00)
[2016-10-11] MEDS: ACETAMINOPHEN/HYDROcodone 325 MG/7.5 MG TAB PO PRN ×5 (03:22→21:09)
[2016-10-11 04:00] VITALS: BP 114/66; PULSE 68; RESP 20; TEMP 96.5; O2SAT 97
[2016-10-11] MEDS: PIPERACIL-TAZO 4.5 GM PREMIX 100 ML IV SCH ×4 (04:54→21:07)
[2016-10-11] MEDS: LEVOTHYROXINE SODIUM 125 MCG TAB PO SCH (05:00)
--- NOTE | 2016-10-11 07:52 | PD.ORT.PN ---
Subjective Subjective Remarks Decreased pain, able to move the arm well Objective Vitals Vital Signs Date Time Temp Pulse Resp B/P Pulse Ox O2 Delivery O2 Flow Rate FiO2 10/11/16 04:00 96.5 68 20 114/66 97 10/11/16 00:00 96.2 70 20 115/65 97 10/10/16 22:44 68 10/10/16 20:00 96.5 75 20 108/69 97 10/10/16 16:00 96.6 74 20 92/61 96 10/10/16 15:57 96 21 10/10/16 12:00 97.5 67 20 111/66 96 10/10/16 09:30 97.7 75 16 107/67 100 Room Air 10/10/16 09:15 74 16 106/65 100 Room Air 10/10/16 09:00 76 15 96/53 100 Nasal Cannula 2 10/10/16 08:52 97.7 83 15 123/68 99 Nasal Cannula 2 I/O 10/10/16 10/10/16 10/10/16 10/11/16 10/11/16 10/11/16 07:00 15:00 23:00 07:00 15:00 23:00 Intake Total 1980 ml 700 ml Output Total 100 ml 10 ml Balance 1880 ml 690 ml Intake Oral 480 ml IV Total 900 ml 700 ml Other 600 ml Drainage Total 10 ml Estimated Blood Loss 100 ml # Voids 4 4 1 1 # Bowel Movements 1 1 0 0 Result Diagram: 10/09/16 0647 10/10/16 0640 Imaging Last 24 hours Impressions Upper Extremity CT 10/09/16 0703 Signed Impressions: Service Date/Time: September 07:55 - CONCLUSION: Cellulitis with small abscess along the posterior elbow seen within the posterior soft tissues. Maycol Magana MD Elbow X-Ray 10/08/162034 Signed Impressions: Service Date/Time: Saturday, October 08, 2016 20:52 - CONCLUSION: Soft tissue swelling. No acute bony findings Zhou Lozano MD Objective Remarks RUE: dressings clean and dry. intact. +drain. NVI. Elbow good ROM, mild swelling of fingers with good ROM Assessment & Plan Assessment and Plan 1) Right Olecranon Abscess s/p I&D - POD 1 -WBAT -daily dressing changes POD 2 -plan for DC of drain POD 3 -infectious disease for Abx pending cultures (still pending consult to see patient) -patient will be hospitalized until cultures are done and Abx are tailored and set up for home (no growth to date) -will follow up in office with Dr Jenkins or PA in 2 weeks Anderson Leblanc MD October 11, 2016 07:52
[2016-10-11 08:05] VITALS: BP 113/61; PULSE 70; PULSE 77; RESP 19; TEMP 96.3; O2SAT 98
[2016-10-11] MEDS: SODIUM CHLORIDE 0.9% FLUSH 10 ML FLUSH IV FLUSH SCH ×2 (08:17→21:07)
[2016-10-11 08:54] LABS: AUTOMATED NEUTROPHIL # 10.2 TH/MM3 (1.8-7.7); BASOPHIL # 0.1 TH/MM3 (0-0.2); EOSINOPHIL % 0.3 % (0.0-4.0); HEMATOCRIT 34.7 % (35.0-46.0); LYMPH % 14.5 % (9.0-44.0); LYMPHOCYTE # 2.1 TH/MM3 (1.0-4.8); MEAN CELL VOLUME 97.2 FL (80.0-100.0); MEAN CORPUSCULAR HEMOGLOBIN 32.5 PG (27.0-34.0); MEAN CORPUSCULAR HGB CONC 33.5 % (32.0-36.0); MONO % 12.2 % (0.0-8.0); PLATELET COUNT 328 TH/MM3 (150-450); RED BLOOD COUNT 3.57 MIL/MM3 (4.00-5.30); RED CELL DISTRIBUTION WIDTH 13.4 % (11.6-17.2); WHITE BLOOD COUNT 14.2 TH/MM3 (4.0-11.0)
[2016-10-11 08:59] LABS: HEMO FLAGS AUTO DIFF
[2016-10-11 09:29] LABS: BICARBONATE 21.5 MEQ/L (21.0-32.0); POTASSIUM 3.4 MEQ/L (3.5-5.1)
[2016-10-11 10:27] LABS: BANDS 14 % (0-6); NEUTROPHIL # MANUAL DIFF 11.8 TH/MM3 (1.8-7.7); POLYS (SEG NEUTROPHILS) 69 % (16-70); WBC DIFF SAMPLE 100
[2016-10-11 10:28] LABS: SCAN/DIFF FINAL DIFF MANUAL
[2016-10-11 12:02] VITALS: BP 106/59; PULSE 73; RESP 19; TEMP 96.6; O2SAT 98
--- NOTE | 2016-10-11 14:49 | MB ---
cc: AIDAN DIEGO MD DATE OF CONSULTATION: 10/11/2016. REASON FOR CONSULTATION: Right olecranon abscess. REQUESTING PHYSICIAN: Dr. Mcneill. HISTORY OF PRESENT ILLNESS: This is a 56-year-old white female who presented to the emergency department with redness and swelling of her right elbow. The patient was previously seen at another facility on 10/03 after she banged her elbow against the car door. She was given Augmentin and Bactrim and states that she took it for a couple of days and then presented to the [facility] for evaluation. She initially bumped her elbow against the car door about a week ago and after a few days she noted that it was not getting better and then she presented to the emergency department. She noted that she had redness along her right arm and the pain was persisting. She underwent irrigation and debridement of the right elbow. Cultures were taken. The cultures were pending. Blood culture was taken on 10/08 and it had no growth. The patient's white blood cell count was elevated at 17.6 on admission. Today's white count is 14.2. She is afebrile. PAST MEDICAL HISTORY: 1. Hypothyroidism. 2. History of MRSA infection. 3. Right axilla cystic lesion. 4. Tonsillectomy. 5. section. ALLERGIES: NO KNOWN DRUG ALLERGIES. MEDICATIONS: 1. Vancomycin. 2. Piperacillin / tazobactam. 3. Synthroid. 4. Nicholls 7.5 PRN. SOCIAL HISTORY The patient smokes half-a-pack of cigarettes a day. Occasional alcohol. No illicit drugs. FAMILY HISTORY: Noncontributory. REVIEW OF SYSTEMS: CONSTITUTIONAL: No fever or chills. HEAD, EYES, EARS, NOSE, THROAT: No visual blurring or diplopia. No difficulty swallowing or soreness of the throat. NECK: No neck swelling or neck pain. CARDIOVASCULAR: No palpitations or chest pain. RESPIRATORY: No cough or shortness of breath. GASTROINTESTINAL: No nausea or vomiting or abdominal pain. No diarrhea. GENITOURINARY: No urgency, frequency or dysuria. MUSCULOSKELETAL: Significant for pain in the right elbow. INTEGUMENTARY: No skin rash or itching. HEMATOPOIETIC: No easy bruising or bleeding. ENDOCRINE: No polyuria or polydipsia. PSYCHIATRIC: No problems with depression or mood alteration. PHYSICAL EXAMINATION: GENERAL: This is a well-developed female who is in no acute distress. VITAL SIGNS: Temperature 96.6, blood pressure 106/59, respirations 19, heart rate 73. HEAD, EYES, EARS, NOSE, THROAT: Extraocular movements grossly intact. Pupils reactive to light. No icterus. Oropharynx with no visible lesions. NECK: The neck is supple without adenopathy. LUNGS: Clear to auscultation. HEART: Regular rate and rhythm without murmurs, rubs or gallops. ABDOMEN: Bowel sounds present, soft, no tenderness appreciated. RECTAL: Not performed. EXTREMITIES: The right elbow has decreased erythema just on the demarcation line which was placed up to the area beneath the axilla at the humerus area. The elbow is in a surgical dressing and there is a drainage catheter and bulb which has serosanguineous drainage. The range of motion is intact. SKIN: No rash. NEUROLOGIC: Nonfocal. PSYCHIATRIC: The patient is calm and cooperative. LABS: WBCs 14.2, platelet count 328,000, hemoglobin 11.6. Creatinine 1.60, BUN 18, estimated GFR 34. Creatinine on 10/10 was 0.57 and estimated GFR was 111. IMPRESSION: 1. Right elbow cellulitis and abscess. 2. Acute renal failure, probably exacerbated by medications including Vancomycin. 3. Leukocytosis secondary to infection. RECOMMENDATIONS: 1. Continue the piperacillin / tazobactam. 2. Hold off on additional Vancomycin and monitor the renal function. 3. Follow the wound culture for antibiotic determination. 4. Monitor the white blood cell count and renal function. Thank you this consultation. The patient's progress will be monitored and further recommendations will be given on followup. Aidan Diego MD FD/OSCAR /2:14 PM /2:34 PM SUSANA
--- NOTE | 2016-10-11 15:12 | HHI.PR ---
Subjective Remarks Pt seen earlier today. Pt feels ok today. Has some pain but just took pain meds. Tells me that the pain meds help. Denies any CP/SOB/N/V Objective Vitals Vital Signs Date Time Temp Pulse Resp B/P Pulse Ox O2 Delivery O2 Flow Rate FiO2 10/11/16 12:02 96.6 73 19 106/59 98 10/11/16 08:05 96.3 77 19 113/61 98 10/11/16 08:05 70 10/11/16 04:00 96.5 68 20 114/66 97 10/11/16 00:00 96.2 70 20 115/65 97 10/10/16 22:44 68 10/10/16 20:00 96.5 75 20 108/69 97 10/10/16 16:00 96.6 74 20 92/61 96 10/10/16 15:57 96 21 I/O 10/10/16 10/10/16 10/10/16 10/11/16 10/11/16 10/11/16 07:00 15:00 23:00 07:00 15:00 23:00 Intake Total 1980 ml 700 ml Output Total 100 ml 10 ml Balance 1880 ml 690 ml Intake Oral 480 ml IV Total 900 ml 700 ml Other 600 ml Drainage Total 10 ml Estimated Blood Loss 100 ml # Voids 4 4 1 1 # Bowel Movements 1 1 0 0 Result Diagram: 10/11/16 0756 10/11/16 0756 Imaging Last Impressions Upper Extremity CT 10/09/16 0703 Signed Impressions: Service Date/Time: September 07:55 - CONCLUSION: Cellulitis with small abscess along the posterior elbow seen within the posterior soft tissues. Maycol Magana MD Elbow X-Ray 10/08/162034 Signed Impressions: Service Date/Time: Saturday, October 08, 2016 20:52 - CONCLUSION: Soft tissue swelling. No acute bony findings Zhou Lozano MD Objective Remarks GENERAL: This is a well-nourished, well-developed patient, in no apparent distress. CARDIOVASCULAR: Regular rate and regular rhythm without murmurs RESPIRATORY: Clear to auscultation. Breath sounds equal bilaterally. No wheezes GASTROINTESTINAL: Abdomen soft, non-tender, nondistended. Normal, active bowel sounds MUSCULOSKELETAL: right elbow is covered with clean dressing. NEURO: Alert & Oriented x4 to person, place, time, situation. Moves all ext x4 Procedures Irrigation and debridement right elbow abscess excision of olecranon bursa A/P Problem List: (1) Cellulitis ICD Code: L03.90 Status: Acute Assessment and Plan R upper extremity cellulitis possible abscess Leukocytosis CT right upper extremity with Cellulitis with small abscess along the posterior elbow seen within the posterior soft tissues. s/p Irrigation and debridement right elbow abscess excision of olecranon bursa. WBAT. on IV Vanco and Zosyn. Hold Vanc as pt's Cr is elevated to 1.60. ID recommends keeping the zosyn for now. Appreciate assistance from consultants. continue with pain control LUZ Started pt on IV NS @100ml/hr and monitor Cr level Hypokalemia replaced Hypothyroidism chronic stable Continue home Synthroid dose 0.125 mg by mouth daily DVT prophylaxis with SCDs Discharge Planning d/c pending further work-up and clinical improvement and Abx recFreida Zazueta MD October 11, 2016 15:12
[2016-10-11] MEDS: SODIUM CHLOR 0.9% 1000 ML INJ 1,000 ML IV SCH (15:15)
[2016-10-11 16:42] VITALS: BP 98/60; PULSE 66; RESP 17; TEMP 96.8; O2SAT 99
[2016-10-11 20:00] VITALS: BP 122/56; PULSE 71; RESP 20; TEMP 96; O2SAT 95
[2016-10-12] VITALS (9 sets, daily range): BP systolic 107–128; BP diastolic 55–77; PULSE 61–72; RESP 17–20; TEMP 95.6–98; O2SAT 95–98
[2016-10-12] MEDS: SODIUM CHLOR 0.9% 1000 ML INJ 1,000 ML IV SCH ×3 (02:51→14:44)
[2016-10-12] MEDS: ACETAMINOPHEN/HYDROcodone 325 MG/7.5 MG TAB PO PRN ×4 (02:51→21:00)
[2016-10-12] MEDS: PIPERACIL-TAZO 4.5 GM PREMIX 100 ML IV SCH ×3 (02:52→14:43)
[2016-10-12] MEDS: LEVOTHYROXINE SODIUM 125 MCG TAB PO SCH (05:58)
[2016-10-12] MEDS: SODIUM CHLORIDE 0.9% FLUSH 10 ML FLUSH IV FLUSH SCH ×2 (08:31→21:00)
--- NOTE | 2016-10-12 09:03 | PD.ORT.PN ---
Subjective Post Op Day #: 2 Subjective Remarks Patient sitting on the side of the bed eating breakfast. Patient notes decreased pain and improved ROM of the right elbow today. Objective Vitals Vital Signs Date Time Temp Pulse Resp B/P Pulse Ox O2 Delivery O2 Flow Rate FiO2 10/12/16 08:25 64 10/12/16 08:11 95.6 64 18 126/77 98 10/12/16 04:00 96.0 70 20 108/62 95 10/12/16 00:00 96.5 70 20 118/55 96 10/11/16 20:00 96.0 71 20 122/56 95 10/11/16 17:03 18 10/11/16 16:42 96.8 66 17 98/60 99 10/11/16 12:02 96.6 73 19 106/59 98 I/O 10/11/16 10/11/16 10/11/16 10/12/16 10/12/16 10/12/16 07:00 15:00 23:00 07:00 15:00 23:00 Intake Total 700 ml 520 ml 920 ml Output Total 10 ml 10 ml 5 ml Balance 690 ml 510 ml 915 ml Intake Oral 240 ml 120 ml IV Total 700 ml 280 ml 800 ml Drainage Total 10 ml 10 ml 5 ml # Voids 1 4 3 # Bowel Movements 0 0 0 Result Diagram: 10/11/16 0756 10/11/16 0756 Imaging Last 24 hours Impressions Upper Extremity CT 10/09/16702 Signed Impressions: Service Date/Time: September 07:55 - CONCLUSION: Cellulitis with small abscess along the posterior elbow seen within the posterior soft tissues. Maycol Magana MD Elbow X-Ray 10/08/162034 Signed Impressions: Service Date/Time: Saturday, October 08, 2016 20:52 - CONCLUSION: Soft tissue swelling. No acute bony findings Zhou Lozano MD Objective Remarks RUE: dressings clean and dry. intact. +drain with 5 cc output over night. + NVI. Elbow good ROM, little to no swelling of fingers with good ROM. Sling in place. Cultures + Staph Aureus Assessment & Plan Ortho Post Op Day #: 2 Problem List: Assessment and Plan 1) Right Olecranon Abscess s/p I&D - POD 2 -WBAT -daily dressing changes POD 2 -plan for DC of drain POD 3 -infectious disease for Abx pending cultures (Cultures + Staph Aureus) -patient will be hospitalized until cultures are done and Abx are tailored and set up for home -will follow up in office with Dr Jenkins or PA in 2 weeks -Continue with sling for comfort and support -Ice PRN swelling Hector Belcher October 12, 2016 09:03
[2016-10-12] MEDS ORDERED: PHARMACY ORDERED LAB ONE (13:45)
--- NOTE | 2016-10-12 16:08 | HHI.PR ---
Subjective Remarks Pt evaluated earlier Has pain but just had some pain meds. denies any CP/SOB/N/V Objective Vitals Vital Signs Date Time Temp Pulse Resp B/P Pulse Ox O2 Delivery O2 Flow Rate FiO2 10/12/16 12:00 98.0 68 17 107/63 98 10/12/16 10:29 98 21 10/12/16 08:25 64 10/12/16 08:11 95.6 64 18 126/77 98 10/12/16 04:00 96.0 70 20 108/62 95 10/12/16 00:00 96.5 70 20 118/55 96 10/11/16 20:00 96.0 71 20 122/56 95 10/11/16 17:03 18 10/11/16 16:42 96.8 66 17 98/60 99 I/O 10/11/16 10/11/16 10/11/16 10/12/16 10/12/16 10/12/16 07:00 15:00 23:00 07:00 15:00 23:00 Intake Total 700 ml 520 ml 920 ml Output Total 10 ml 10 ml 5 ml Balance 690 ml 510 ml 915 ml Intake Oral 240 ml 120 ml IV Total 700 ml 280 ml 800 ml Drainage Total 10 ml 10 ml 5 ml # Voids 1 4 3 # Bowel Movements 0 0 0 Result Diagram: 10/11/16 0756 10/11/16 0756 Imaging Last Impressions Upper Extremity CT 10/09/1603 Signed Impressions: Service Date/Time: September 07:55 - CONCLUSION: Cellulitis with small abscess along the posterior elbow seen within the posterior soft tissues. Maycol Magana MD Elbow X-Ray 10/08/162034 Signed Impressions: Service Date/Time: Saturday, October 08, 2016 20:52 - CONCLUSION: Soft tissue swelling. No acute bony findings Zhou Lozano MD Objective Remarks GENERAL: This is a well-nourished, well-developed patient, in no apparent distress. CARDIOVASCULAR: Regular rate and regular rhythm without murmurs RESPIRATORY: Clear to auscultation. Breath sounds equal bilaterally. No wheezes GASTROINTESTINAL: Abdomen soft, non-tender, nondistended. MUSCULOSKELETAL: right elbow is covered with clean dressing. drains in place, wiggles fingers, cap refill <2sec Procedures Irrigation and debridement right elbow abscess excision of olecranon bursa A/P Problem List: (1) Cellulitis ICD Code: L03.90 Status: Acute Assessment and Plan R upper extremity cellulitis possible abscess Leukocytosis CT right upper extremity with Cellulitis with small abscess along the posterior elbow seen within the posterior soft tissues. s/p Irrigation and debridement right elbow abscess excision of olecranon bursa. WBAT. on IV Vanco and Zosyn. continue to hold Vanc as pt's Cr is elevated to 1.60 yesterday. Continue zosyn for now per ID. Appreciate assistance from consultants. Drain to be removed tomorrow. fluid cx + for staph aureus continue with pain control LUZ on IV NS @100ml/hr and monitor Cr level BMP ordered but not yet resulted. repeat BMP in AM Hypokalemia replaced Hypothyroidism chronic stable Continue home Synthroid dose 0.125 mg by mouth daily DVT prophylaxis with SCDs Discharge Planning d/c pending further work-up and clinical improvement and Abx recFreida Zazueta MD October 12, 2016 16:08
[2016-10-12] MEDS ORDERED: DOCUSATE SODIUM 50 MG/SENNA 8.6 MG TAB PO PRN (16:15)
[2016-10-12] MEDS ORDERED: MAGNESIUM HYDROXIDE SUSP 30 ML CUP PO PRN (16:15)
[2016-10-12 16:40] LABS: BICARBONATE 20.5 MEQ/L (21.0-32.0); POTASSIUM 3.7 MEQ/L (3.5-5.1)
--- NOTE | 2016-10-12 16:55 | HHI.IDPN ---
Note Infectious Disease Note Patient without complaints. Afebrile. Wound culture has staph aureus. PAST MEDICAL HISTORY: 1. Hypothyroidism. 2. History of MRSA infection. 3. Right axilla cystic lesion. 4. Tonsillectomy. 5. section. ALLERGIES: NO KNOWN DRUG ALLERGIES. MEDICATIONS: 1. Vancomycin. 2. Piperacillin / tazobactam. OBJECTION: Vital Signs Date Time Temp Pulse Resp B/P Pulse Ox O2 Delivery O2 Flow Rate FiO2 10/12/16 16:00 97.9 72 18 112/71 96 10/12/16 12:00 98.0 68 17 107/63 98 10/12/16 10:29 98 21 10/12/16 08:25 64 10/12/16 08:11 95.6 64 18 126/77 98 10/12/16 04:00 96.0 70 20 108/62 95 10/12/16 00:00 96.5 70 20 118/55 96 10/11/16 20:00 96.0 71 20 122/56 95 10/11/16 17:03 18 10/11/16 10/11/16 10/12/16 15:00 23:00 07:00 Intake Total 520 ml 920 ml Output Total 10 ml 5 ml Balance 510 ml 915 ml Intake Oral 240 ml 120 ml IV Total 280 ml 800 ml Drainage Total 10 ml 5 ml # Voids 4 3 # Bowel Movements 0 0 Laboratory Tests Test 10/11/16 07:56 White Blood Count 14.2 TH/MM3 Red Blood Count 3.57 MIL/MM3 Hemoglobin 11.6 GM/DL Hematocrit 34.7 % Mean Corpuscular Volume 97.2 FL Mean Corpuscular Hemoglobin 32.5 PG Mean Corpuscular Hemoglobin 33.5 % Concent Red Cell Distribution Width 13.4 % Platelet Count 328 TH/MM3 Mean Platelet Volume 7.7 FL Neutrophils (%) (Auto) 72.0 % Lymphocytes (%) (Auto) 14.5 % Monocytes (%) (Auto) 12.2 % Eosinophils (%) (Auto) 0.3 % Basophils (%) (Auto) 1.0 % Neutrophils # (Auto) 10.2 TH/MM3 Lymphocytes # (Auto) 2.1 TH/MM3 Monocytes # (Auto) 1.7 TH/MM3 Eosinophils # (Auto) 0.0 TH/MM3 Basophils # (Auto) 0.1 TH/MM3 CBC Comment AUTO DIFF Differential Total Cells 100 Counted Neutrophils % (Manual) 69 % Band Neutrophils % 14 % Lymphocytes % 9 % Monocytes % 8 % Neutrophils # (Manual) 11.8 TH/MM3 Differential Comment FINAL DIFF MANUAL Laboratory Tests Test 10/11/16 10/12/16 07:56 16:01 Sodium Level 140 MEQ/L 143 MEQ/L Potassium Level 3.4 MEQ/L 3.7 MEQ/L Chloride Level 108 MEQ/L 113 MEQ/L Carbon Dioxide Level 21.5 MEQ/L 20.5 MEQ/L Anion Gap 11 MEQ/L 10 MEQ/L Blood Urea Nitrogen 18 MG/DL 21 MG/DL Creatinine 1.60 MG/DL 2.54 MG/DL Estimat Glomerular Filtration 34 ML/MIN 20 ML/MIN Rate Random Glucose 80 MG/DL 87 MG/DL Calcium Level 8.7 MG/DL 8.3 MG/DL Microbiology Date/Time Procedure Status Source Growth 10/10/16 08:30 Gram Stain - Final Complete Fluid Other 10/10/16 08:30 Body Fluid Culture - Final Complete Staphylococcus Aureus 10/10/16 08:30 Acid Fast Stain - Final Resulted Fluid Other NO ACID FAST BACILLI SEEN 10/10/16 08:30 Mycobacterial Culture Resulted Fluid Other Pending 10/10/16 08:30 Fungal Smear - Final Resulted Fluid Other NO FUNGAL ELEMENTS SEEN. 10/10/16 08:30 Fungal Culture Resulted Fluid Other Pending PHYSICAL EXAMINATION: GENERAL: No acute distress. HEAD, EYES, EARS, NOSE, THROAT: No icterus. Oropharynx with no visible lesions. NECK: The neck is supple without adenopathy. LUNGS: Clear to auscultation. HEART: Regular rate and rhythm without murmurs, rubs or gallops. ABDOMEN: Bowel sounds present, soft, no tenderness appreciated. EXTREMITIES: The right elbow has decreased erythema Drainage catheter and bulb has serosanguineous drainage. The range of motion is intact. SKIN: No rash. NEUROLOGIC: Nonfocal. PSYCHIATRIC: Calm and cooperative. IMPRESSION: 1. Right elbow cellulitis and abscess. Staph aureus. 2. Acute renal failure, probably exacerbated by medications including Vancomycin. 3. Leukocytosis secondary to infection. RECOMMENDATIONS: 1. Start Ancef IV. 2. Stop piperacillin / tazobactam. 3. D/C Vancomycin 4. Monitor the white blood cell count and renal function. Change to IV Ceftriaxone on discharge. Dontfraid,Brien F MD October 12, 2016 16:55
[2016-10-13] VITALS: BP 124/78; PULSE 70; RESP 20; TEMP 96.2; O2SAT 95
[2016-10-13 04:00] VITALS: BP 123/76; PULSE 66; RESP 20; TEMP 96.1; O2SAT 96
[2016-10-13] MEDS: LEVOTHYROXINE SODIUM 125 MCG TAB PO SCH (05:31)
[2016-10-13] MEDS: ACETAMINOPHEN/HYDROcodone 325 MG/7.5 MG TAB PO PRN ×3 (05:32→17:25)
[2016-10-13] MEDS ORDERED: HYDR-3288 PO (06:43)
--- NOTE | 2016-10-13 06:44 | HHI.FF ---
Face to Face Verification Diagnosis: (1) Olecranon bursa abscess Nursing Dressing Changes: Daily dressing change, Alejandro wrap, 4x4s, Xeroform I have seen patient Zuleyka Estrella on 10/13/16. My clinical findings support the need for the requested home health care services because: Ltd mobility - disease progression I certify that my clinical findings support that this patient is homebound because: Post-op weakness Jd Oswald October 13, 2016 06:44
[2016-10-13 07:01] LABS: AUTOMATED NEUTROPHIL # 7.9 TH/MM3 (1.8-7.7); BASOPHIL # 0.1 TH/MM3 (0-0.2); BASOPHIL % 0.8 % (0.0-2.0); EOSINOPHIL # 0.2 TH/MM3 (0-0.4); EOSINOPHIL % 1.8 % (0.0-4.0); HEMATOCRIT 35.2 % (35.0-46.0); HEMO FLAGS DIFF FINAL; LYMPH % 10.9 % (9.0-44.0); LYMPHOCYTE # 1.1 TH/MM3 (1.0-4.8); MEAN CELL VOLUME 98.2 FL (80.0-100.0); MEAN CORPUSCULAR HEMOGLOBIN 33.2 PG (27.0-34.0); MEAN CORPUSCULAR HGB CONC 33.8 % (32.0-36.0); NEUT % 76.5 % (16.0-70.0); PLATELET COUNT 361 TH/MM3 (150-450); RED BLOOD COUNT 3.58 MIL/MM3 (4.00-5.30); RED CELL DISTRIBUTION WIDTH 13.5 % (11.6-17.2); WHITE BLOOD COUNT 10.3 TH/MM3 (4.0-11.0)
[2016-10-13 07:13] LABS: BICARBONATE 18.2 MEQ/L (21.0-32.0)
[2016-10-13 07:14] LABS: POTASSIUM 4.2 MEQ/L (3.5-5.1)
[2016-10-13 07:45] VITALS: BP 130/71; PULSE 63; RESP 17; TEMP 96.4; O2SAT 96
[2016-10-13] MEDS: POLYETHYLENE GLYCOL 17 GM PKG PO SCH (08:56)
[2016-10-13] MEDS: SODIUM CHLOR 0.9% 1000 ML INJ 1,000 ML IV SCH ×3 (08:56→23:04)
[2016-10-13] MEDS: SODIUM CHLORIDE 0.9% FLUSH 10 ML FLUSH IV FLUSH SCH ×2 (08:57→20:52)
[2016-10-13] MEDS: ceFAZolin 500 MG/NS 100 ML IV SCH ×2 (11:52)
[2016-10-13 11:58] VITALS: BP 141/67; PULSE 64; RESP 17; TEMP 97.1; O2SAT 100
--- NOTE | 2016-10-13 12:55 | HHI.IDPN ---
Note Infectious Disease Note Patient without complaints. Afebrile. Drainage catheter removed. Has pain and soreness in the R. elbow. PAST MEDICAL HISTORY: 1. Hypothyroidism. 2. History of MRSA infection. 3. Right axilla cystic lesion. 4. Tonsillectomy. 5. section. ALLERGIES: NO KNOWN DRUG ALLERGIES. MEDICATIONS: Ancef. OBJECTION: Vital Signs Date Time Temp Pulse Resp B/P Pulse Ox O2 Delivery O2 Flow Rate FiO2 10/13/16 11:58 97.1 64 17 141/67 100 10/13/16 07:45 96.4 63 17 130/71 96 10/13/16 04:00 96.1 66 20 123/76 96 10/13/16 00:00 96.2 70 20 124/78 95 10/12/16 23:00 61 10/12/16 20:00 96.5 62 20 128/73 97 10/12/16 16:00 97.9 72 18 112/71 96 10/12/16 10/12/16 10/13/16 14:59 22:59 06:59 Intake Total 1257 ml 60 ml Output Total 5 ml Balance 1252 ml 60 ml Intake Oral 240 ml 60 ml IV Total 1017 ml Drainage Total 5 ml # Voids 1 1 # Bowel Movements 1 0 Laboratory Tests Test 10/13/16 05:52 White Blood Count 10.3 TH/MM3 Red Blood Count 3.58 MIL/MM3 Hemoglobin 11.9 GM/DL Hematocrit 35.2 % Mean Corpuscular Volume 98.2 FL Mean Corpuscular Hemoglobin 33.2 PG Mean Corpuscular Hemoglobin 33.8 % Concent Red Cell Distribution Width 13.5 % Platelet Count 361 TH/MM3 Mean Platelet Volume 7.8 FL Neutrophils (%) (Auto) 76.5 % Lymphocytes (%) (Auto) 10.9 % Monocytes (%) (Auto) 10.0 % Eosinophils (%) (Auto) 1.8 % Basophils (%) (Auto) 0.8 % Neutrophils # (Auto) 7.9 TH/MM3 Lymphocytes # (Auto) 1.1 TH/MM3 Monocytes # (Auto) 1.0 TH/MM3 Eosinophils # (Auto) 0.2 TH/MM3 Basophils # (Auto) 0.1 TH/MM3 CBC Comment DIFF FINAL Differential Comment Laboratory Tests Test 10/12/16 10/13/16 16:01 05:52 Sodium Level 143 MEQ/L 144 MEQ/L Potassium Level 3.7 MEQ/L 4.2 MEQ/L Chloride Level 113 MEQ/L 116 MEQ/L Carbon Dioxide Level 20.5 MEQ/L 18.2 MEQ/L Anion Gap 10 MEQ/L 10 MEQ/L Blood Urea Nitrogen 21 MG/DL 21 MG/DL Creatinine 2.54 MG/DL 2.77 MG/DL Estimat Glomerular Filtration 20 ML/MIN 18 ML/MIN Rate Random Glucose 87 MG/DL 79 MG/DL Calcium Level 8.3 MG/DL 8.5 MG/DL Microbiology Date/Time Procedure Status Source Growth 10/10/16 08:30 Gram Stain - Final Complete Fluid Other 10/10/16 08:30 Body Fluid Culture - Final Complete Staphylococcus Aureus 10/10/16 08:30 Acid Fast Stain - Final Resulted Fluid Other NO ACID FAST BACILLI SEEN 10/10/16 08:30 Mycobacterial Culture Resulted Fluid Other Pending 10/10/16 08:30 Fungal Smear - Final Resulted Fluid Other NO FUNGAL ELEMENTS SEEN. 10/10/16 08:30 Fungal Culture Resulted Fluid Other Pending PHYSICAL EXAMINATION: GENERAL: No acute distress. HEAD, EYES, EARS, NOSE, THROAT: No icterus. Oropharynx with no visible lesions. NECK: The neck is supple without adenopathy. LUNGS: Clear to auscultation. HEART: Regular rate and rhythm without murmurs, rubs or gallops. ABDOMEN: Bowel sounds present, soft, no tenderness appreciated. EXTREMITIES: The right elbow has markedly decreased erythema. Spotty serous drainage on the dressing. The range of motion is intact. SKIN: No rash. NEUROLOGIC: Nonfocal. PSYCHIATRIC: Calm and cooperative. IMPRESSION: 1. Right elbow cellulitis and abscess. Staph aureus. 2. Acute renal failure, probably exacerbated by medications including Vancomycin. Needs to be addressed. 3. Leukocytosis secondary to infection. Improved. RECOMMENDATIONS: 1. Insert PIC line and arrange for 2 weeks of outpatient Ceftriaxone IV. 2. Case management consult for IV antibiotic arrangement. 3. Can be discharged when IV antibiotics are arranged. Brien Shi MD October 13, 2016 12:55
--- NOTE | 2016-10-13 12:58 | HHI.FF ---
Infusion Therapy Location of Infusion Therapy: Ambulatory Infusion Therapy Order Patient Information Patient Weight 77.1 kg Diagnosis: (1) Olecranon bursa abscess (2) Cellulitis Coded Allergies: *MDRO Multi-Drug Resistant Organism (Verified Adverse Reaction, Unknown, ) MRSA (wound)-12/27/13 Administer Medication Ceftriaxone 1 gram IV q 24 hours Stop Treatment: October 24, 2016 Additional Information Venous access: PICC Line Additional Instructions [x] Peripheral flush and dressing changes per protocol [x] Implanted port and central line controller: * Implanted port: 10 ml Normal Saline followed by 5 ml Heparin 100 units/ml Heparin flush after each use and monthly to maintain. [] May leave port accessed during therapy. [] May leave peripheral site accessed for duration of therapy. [x] If patient has SOB or respiratory distress, check oxygen saturation. If less than 90% or clinical signs of respiratory distress, administer oxygen at 2 L/min. via nasal cannula and notify physician. [x] Anaphylaxis/Reaction orders: * Stop infusion. * Keep IV line open with saline flush. * Notify physician. * Monitor vital signs every 15 minutes until symptoms resolve. * Check Oxygen saturation; Oxygen at 2 L/min. via nasal cannula if less than 90% or clinical signs of respiratory distress. * Administer diphenhydramine (Benadryl) 25 mg IV STAT, (unless patient has received as pre-med). May repeat once, if necessary. * Solu-Cortef 250 mg IVP over 30-60 seconds, use 100 mg vials for each dissolution. * Epinephrine (1mg/1 ml) 0.3 mg subcutaneously or IVP now with any signs of respiratory distress. * Check with physician for new additional pre-med orders if patient is re- challenged or re-treated. [x] May remove PICC line when treatment complete, after confirming with Physician. [x] If the patient is admitted to the hospital, the ED, or transferred via [facility] , complete transfer form including medication reconciliation order sheet. Laboratory Tests Weekly Labs: Brien Garcia MD October 13, 2016 12:58
--- NOTE | 2016-10-13 15:51 | HHI.PR ---
Subjective Remarks pt currently doing ok. had mid line placed. pain controlled. denies any CP/SOB/N /V Objective Vitals Vital Signs Date Time Temp Pulse Resp B/P Pulse Ox O2 Delivery O2 Flow Rate FiO2 10/13/16 12:56 16 10/13/16 11:58 97.1 64 17 141/67 100 10/13/16 07:45 96.4 63 17 130/71 96 10/13/16 04:00 96.1 66 20 123/76 96 10/13/16 00:00 96.2 70 20 124/78 95 10/12/16 23:00 61 10/12/16 20:00 96.5 62 20 128/73 97 10/12/16 16:00 97.9 72 18 112/71 96 I/O 10/12/16 10/12/16 10/12/16 10/13/16 10/13/16 10/13/16 07:00 15:00 23:00 07:00 15:00 23:00 Intake Total 920 ml 1257 ml 60 ml Output Total 5 ml 5 ml 8 ml Balance 915 ml 1252 ml 60 ml -8 ml Intake Oral 120 ml 240 ml 60 ml IV Total 800 ml 1017 ml Drainage Total 5 ml 5 ml 8 ml # Voids 3 1 1 # Bowel Movements 0 1 0 Result Diagram: 10/13/16 0552 10/13/16 0552 Imaging Last Impressions Upper Extremity CT 10/09/16702 Signed Impressions: Service Date/Time: September 07:55 - CONCLUSION: Cellulitis with small abscess along the posterior elbow seen within the posterior soft tissues. Maycol Magana MD Elbow X-Ray 10/08/162034 Signed Impressions: Service Date/Time: Saturday, October 08, 2016 20:52 - CONCLUSION: Soft tissue swelling. No acute bony findings Zhou Lozano MD Objective Remarks GENERAL: This is a well-nourished, well-developed patient, in no apparent distress. CARDIOVASCULAR: Regular rate and regular rhythm without murmurs RESPIRATORY: Clear to auscultation. Breath sounds equal bilaterally. No wheezes GASTROINTESTINAL: Abdomen soft, non-tender, nondistended. MUSCULOSKELETAL: right elbow is covered with clean dressing. drains in place, wiggles fingers, cap refill <2sec Procedures Irrigation and debridement right elbow abscess excision of olecranon bursa A/P Problem List: (1) Cellulitis ICD Code: L03.90 Status: Acute Assessment and Plan R upper extremity cellulitis possible abscess Leukocytosis CT right upper extremity with Cellulitis with small abscess along the posterior elbow seen within the posterior soft tissues. s/p Irrigation and debridement right elbow abscess excision of olecranon bursa. WBAT. s/p midline placement on IV Vanco and Zosyn. continue to hold Vanc as pt's Cr is elevated to 2.77 today. Continue zosyn for now per ID. encourage po hydration w IV hydration Appreciate assistance from consultants. Drain to be removed tomorrow. fluid cx + for staph aureus continue with pain control LUZ- worsening increase IV NS @150ml/hr and monitor Cr level. Discussed w RN and monitor closely urine output and document. repeat BMP in AM check renal u/s. concerned for ATN. consider nephrology consult if worsening. Hypokalemia replaced Hypothyroidism chronic stable Continue home Synthroid dose 0.125 mg by mouth daily DVT prophylaxis with SCDs Discharge Planning Kidney function worsening, increased IV fluids, close monitor of urine output. Discussed w CM, they are working on arrangements for pt to go to the Infusion clinic as an outpatient, pt will be getting a blue card as well. Freida Owens MD October 13, 2016 15:51
[2016-10-13 16:00] VITALS: BP 124/85; PULSE 81; RESP 17; TEMP 97.5; O2SAT 99
[2016-10-13 20:00] VITALS: BP 133/75; PULSE 65; RESP 20; TEMP 97.4; O2SAT 97
[2016-10-14] VITALS (8 sets, daily range): BP systolic 127–163; BP diastolic 77–87; PULSE 62–73; RESP 16–20; TEMP 97–97.8; O2SAT 95–100
[2016-10-14] MEDS: ceFAZolin 500 MG/NS 100 ML IV SCH ×4 (00:54→15:30)
[2016-10-14] MEDS: ACETAMINOPHEN/HYDROcodone 325 MG/7.5 MG TAB PO PRN ×4 (00:55→21:50)
[2016-10-14] MEDS: LEVOTHYROXINE SODIUM 125 MCG TAB PO SCH (05:45)
[2016-10-14] MEDS: SODIUM CHLOR 0.9% 1000 ML INJ 1,000 ML IV SCH ×4 (05:47→23:20)
[2016-10-14 08:21] LABS: BICARBONATE 20.9 MEQ/L (21.0-32.0); POTASSIUM 3.8 MEQ/L (3.5-5.1)
[2016-10-14] MEDS: POLYETHYLENE GLYCOL 17 GM PKG PO SCH (09:00)
[2016-10-14] MEDS: SODIUM CHLORIDE 0.9% FLUSH 10 ML FLUSH IV FLUSH SCH ×2 (09:38→21:52)
--- NOTE | 2016-10-14 09:45 | RADRPT ---
EXAM DATE/TIME: 10/14/2016 08:40 [facility] COMPARISON: No previous studies available for comparison. INDICATIONS : Abnormal labs. MEDICAL HISTORY : Thyroid disease. Arthritis. HX of MRSA. SURGICAL HISTORY : Tonsillectomy. section. I&D right elbow. ENCOUNTER: Initial ACUITY: 1 day PAIN SCORE: 0/10 LOCATION: Bilateral flank MEASUREMENTS: RIGHT KIDNEY: 11.7 x 5.9 x 6.1 cm LEFT KIDNEY: 12.2 x 5.8 x 6.7 cm FINDINGS: RIGHT KIDNEY: Renal cortex is normal in thickness and echotexture. No hydronephrosis, stone, or mass. LEFT KIDNEY: Renal cortex is normal in thickness and echotexture. No hydronephrosis, stone, or mass. BLADDER: Within normal limits given the degree of distension. CONCLUSION: 1. Normal examination. Hector Brewster MD on October 14, 2016 at 9:42 Board Certified Radiologist. This report was verified electronically.
[2016-10-14 11:23] LABS: AUTOMATED NEUTROPHIL # 7.5 TH/MM3 (1.8-7.7); BASOPHIL # 0.1 TH/MM3 (0-0.2); BASOPHIL % 0.9 % (0.0-2.0); EOSINOPHIL # 0.2 TH/MM3 (0-0.4); EOSINOPHIL % 2.1 % (0.0-4.0); HEMATOCRIT 32.7 % (35.0-46.0); HEMO FLAGS DIFF FINAL; LYMPH % 12.5 % (9.0-44.0); LYMPHOCYTE # 1.2 TH/MM3 (1.0-4.8); MEAN CORPUSCULAR HEMOGLOBIN 32.8 PG (27.0-34.0); MEAN CORPUSCULAR HGB CONC 34.2 % (32.0-36.0); MONO % 7.1 % (0.0-8.0); NEUT % 77.4 % (16.0-70.0); PLATELET COUNT 346 TH/MM3 (150-450); RED CELL DISTRIBUTION WIDTH 13.5 % (11.6-17.2); WHITE BLOOD COUNT 9.7 TH/MM3 (4.0-11.0)
--- NOTE | 2016-10-14 16:30 | HHI.PR ---
Subjective Remarks pt evaluated earlier today. feels fine, hopeful to be discharged soon. denies any CP/SOB/N/V Objective Vitals Vital Signs Date Time Temp Pulse Resp B/P Pulse Ox O2 Delivery O2 Flow Rate FiO2 10/14/16 16:00 97.7 62 17 151/80 100 10/14/16 12:00 97.4 65 17 163/87 97 10/14/16 12:00 97.4 65 18 163/87 97 10/14/16 08:00 97.8 73 17 159/77 96 10/14/16 04:00 97.0 64 20 127/81 95 10/14/16 02:08 18 10/14/16 00:30 63 10/14/16 00:00 97.7 68 20 143/77 95 10/13/16 20:00 97.4 65 20 133/75 97 I/O 10/13/16 10/13/16 10/13/16 10/14/16 10/14/16 10/14/16 07:00 15:00 23:00 07:00 15:00 23:00 Intake Total 60 ml 2225 ml 1200 ml 240 ml Output Total 8 ml 1100 ml 2200 ml 2100 ml Balance 60 ml -8 ml 1125 ml -1000 ml -1860 ml Intake Oral 60 ml 240 ml 240 ml IV Total 1985 ml 1200 ml Output Urine Total 1100 ml 2200 ml 2100 ml Drainage Total 8 ml # Voids 1 7 # Bowel Movements 0 1 0 2 Result Diagram: 10/14/16 1114 10/14/16 0600 Imaging Last Impressions Renal Ultrasound 10/14/16 0000 Signed Impressions: Service Date/Time: Friday, October 14, 2016 08:40 - CONCLUSION: 1. Normal examination. Hector Brewster MD Upper Extremity CT 10/09/16 0703 Signed Impressions: Service Date/Time: September 07:55 - CONCLUSION: Cellulitis with small abscess along the posterior elbow seen within the posterior soft tissues. Maycol Magana MD Elbow X-Ray 10/08/162034 Signed Impressions: Service Date/Time: Saturday, October 08, 2016 20:52 - CONCLUSION: Soft tissue swelling. No acute bony findings Zhou Lozano MD Objective Remarks GENERAL: This is a well-nourished, well-developed patient, in no apparent distress. CARDIOVASCULAR: Regular rate and regular rhythm without murmurs RESPIRATORY: Clear to auscultation. Breath sounds equal bilaterally. No wheezes GASTROINTESTINAL: Abdomen soft, non-tender, nondistended. MUSCULOSKELETAL: right elbow is covered with clean dressing. drains in place, wiggles fingers, cap refill <2sec Procedures Irrigation and debridement right elbow abscess excision of olecranon bursa A/P Problem List: (1) Cellulitis ICD Code: L03.90 Status: Acute Assessment and Plan R upper extremity cellulitis possible abscess Leukocytosis CT right upper extremity with Cellulitis with small abscess along the posterior elbow seen within the posterior soft tissues. s/p Irrigation and debridement right elbow abscess excision of olecranon bursa. WBAT. s/p midline placement on IV Vanco and Zosyn. continue to hold Vanc as pt's Cr is elevated , slowly trending down 2.15. Continue abx per ID. encourage po hydration w IV hydration NS@150ml/hr. Appreciate assistance from consultants. fluid cx + for staph aureus continue with pain control LUZ- worsening continue IV NS @150ml/hr and monitor Cr level. monitor closely urine output and document. repeat BMP in AM renal u/s normal. concerned for ATN post use of vanco. consider nephrology consult if worsening. Hypokalemia replaced Hypothyroidism chronic stable Continue home Synthroid dose 0.125 mg by mouth daily DVT prophylaxis with SCDs Discharge Planning Kidney function is improving, continue IV fluids, close monitor of urine output. Plan is for pt to go to the Infusion clinic as an outpatient, and she will be getting a blue card. d/c when creatinine close to baseline. Freida Owens MD October 14, 2016 16:30
[2016-10-15 00:36] VITALS: BP 171/86; PULSE 60; RESP 16; TEMP 97.5; O2SAT 99
[2016-10-15] MEDS: ceFAZolin 500 MG/NS 100 ML IV SCH ×2 (01:01)
[2016-10-15] MEDS: ACETAMINOPHEN/HYDROcodone 325 MG/7.5 MG TAB PO PRN ×2 (04:42→11:16)
[2016-10-15 05:26] VITALS: BP 177/84; PULSE 72; RESP 16; TEMP 97.3; O2SAT 99
[2016-10-15 06:22] LABS: BICARBONATE 19.9 MEQ/L (21.0-32.0)
[2016-10-15 06:23] LABS: POTASSIUM 3.8 MEQ/L (3.5-5.1)
[2016-10-15] MEDS: LEVOTHYROXINE SODIUM 125 MCG TAB PO SCH (07:02)
[2016-10-15] MEDS: SODIUM CHLOR 0.9% 1000 ML INJ 1,000 ML IV SCH (07:03)
[2016-10-15 08:00] VITALS: BP 151/96; PULSE 60; RESP 16; TEMP 96.1; O2SAT 98
[2016-10-15] MEDS ORDERED: ceFAZolin 1,000 MG/NS 100 ML IV SCH ×2 (09:00)
[2016-10-15] MEDS: SODIUM CHLORIDE 0.9% FLUSH 10 ML FLUSH IV FLUSH SCH (09:00)
[2016-10-15] MEDS: POLYETHYLENE GLYCOL 17 GM PKG PO SCH (09:00)
[2016-10-15 12:00] VITALS: BP 147/84; PULSE 66; RESP 17; TEMP 97.8; O2SAT 99
--- NOTE | 2016-10-15 12:17 | HHI.PR ---
Subjective Remarks Follow-up cellulitis/abscess of right elbow, acute kidney injury. Patient still having pain in the right arm. No other complaints at this time. Hoping to go home this afternoon. Objective Vitals Vital Signs Date Time Temp Pulse Resp B/P Pulse Ox O2 Delivery O2 Flow Rate FiO2 10/15/16 08:00 96.1 60 16 151/96 98 10/15/16 05:42 18 10/15/16 05:26 97.3 72 16 177/84 99 10/15/16 00:36 97.5 60 16 171/86 99 10/14/16 20:14 97.5 69 16 163/86 99 10/14/16 20:00 68 10/14/16 16:00 97.7 62 17 151/80 100 10/14/16 12:00 97.4 65 17 163/87 97 10/14/16 12:00 97.4 65 18 163/87 97 I/O 10/14/16 10/14/16 10/14/16 10/15/16 10/15/16 10/15/16 07:00 15:00 23:00 07:00 15:00 23:00 Intake Total 1200 ml 240 ml 3894 ml Output Total 2200 ml 2100 ml 3600 ml 200 ml Balance -1000 ml -1860 ml 294 ml -200 ml Intake Oral 240 ml 480 ml IV Total 1200 ml 3414 ml Output Urine Total 2200 ml 2100 ml 3600 ml 200 ml # Bowel Movements 0 2 Result Diagram: 10/14/16 1114 10/15/16 0445 Imaging Last Impressions Renal Ultrasound 10/14/16 0000 Signed Impressions: Service Date/Time: Friday, October 14, 2016 08:40 - CONCLUSION: 1. Normal examination. Hector Brewster MD Upper Extremity CT 10/09/1603 Signed Impressions: Service Date/Time: September 07:55 - CONCLUSION: Cellulitis with small abscess along the posterior elbow seen within the posterior soft tissues. Maycol Magana MD Elbow X-Ray 10/08/162034 Signed Impressions: Service Date/Time: Saturday, October 08, 2016 20:52 - CONCLUSION: Soft tissue swelling. No acute bony findings Zhou Lozano MD Objective Remarks General: No acute distress. Heart: Regular rate and rhythm. No murmur. Lungs: Clear to auscultation bilaterally. No wheezes, rales, or rhonchi. Breathing is nonlabored. Abdomen: Soft, nontender, nondistended. Extremities: No lower extremity edema. Right elbow bandaged. Psych: Alert and oriented. Procedures Irrigation and debridement right elbow abscess excision of olecranon bursa Urinary Catheter: No Vascular Central Line Catheter: Yes (midline, left basilic) Assessment to: Continue A/P Problem List: (1) Cellulitis ICD Code: L03.90 Status: Acute (2) Olecranon bursa abscess ICD Code: M71.029 Status: Acute (3) Acute kidney injury ICD Code: N17.9 Status: Acute (4) Hypokalemia ICD Code: E87.6 Status: Resolved (5) Hypothyroidism ICD Code: E03.9 Status: Acute Assessment and Plan 1. Right upper extremity cellulitis, olecranon bursitis abscess: Status post incision and drainage with excision of olecranon bursa. Appreciate orthopedic surgery recommendations. Continue IV antibiotics per infectious disease recommendations. Arrangements being made for outpatient IV antibiotics. 2. Acute kidney injury: Creatinine is improving. Stop IV fluids. Recheck creatinine this afternoon. 3. Hypokalemia: Resolved. 4. Hypothyroidism: Continue Synthroid. 5. DVT prophylaxis: SCDs. Discharge Planning Possible discharge home this afternoon following repeat labs. Ag Christine MD October 15, 2016 11:21
[2016-10-15 14:06] LABS: BICARBONATE 20.2 MEQ/L (21.0-32.0); POTASSIUM 3.2 MEQ/L (3.5-5.1)
--- NOTE | 2016-10-15 14:53 | HHI.DCPOC ---
Discharge Care Plan Diagnosis: (1) Cellulitis (2) Olecranon bursa abscess (3) Hypokalemia (4) Acute kidney injury (5) Hypothyroidism Goals to Promote Your Health * To prevent worsening of your condition and complications * To maintain your health at the optimal level Directions to Meet Your Goals Take your medications as prescribed Follow your dietary instruction Follow activity as directed Keep your appointments as scheduled Take your immunizations and boosters as scheduled If your symptoms worsen call your PCP, if no PCP go to Urgent Care Center or Emergency Room Smoking is Dangerous to Your Health. Avoid second hand smoke Call the 24-hour hour crisis hotline for domestic abuse at Ag Christine MD October 15, 2016 14:53
--- NOTE | 2016-10-15 14:58 | HHI.DS ---
Discharge Summary Admission Date October 08, 2016 at 21:40 Discharge Date: October 15, 2016 Admitting Diagnosis sepsis, cellulitis versus septic bursitis RIGHT elbow (1) Cellulitis ICD Code: L03.90 (2) Olecranon bursa abscess ICD Code: M71.029 (3) Acute kidney injury ICD Code: N17.9 (4) Hypokalemia ICD Code: E87.6 (5) Hypothyroidism ICD Code: E03.9 Procedures Irrigation and debridement right elbow abscess excision of olecranon bursa Brief History - From Admission This 56-year-old female patient with past medical history which includes MRSA and hypothyroidism. Patient reports she bumped her elbow on her car door last , 10/02/2016. Patient reports he bump resulted in a, "little tiny cut," but she did not think much of it at that time. Patient reports three days later the right elbow was becoming more edematous with erythema and pain therefore she was seen at outside hospital Thursday was given a tetanus shot and started on Bactrim and Augmentin. Patient reports she's been compliant with both Bactrim and Augmentin despite this the Erythema, edema and pain continued to get worse therefore she proceeded to the ER for further evaluation. Patient did have MRSA in the past. Patient also reports mild generalized myalgia. Patient is noted to have erythema of the right arm from wrist to axilla with edema. Patient does have intact sensation and brisk cap refill and full range of motion. Patient reports the pain feels more like a mild to moderate tightness. Patient believes the erythema has gotten slightly better after antibiotics given in emergency department. Patient denies fevers chills nausea vomiting diarrhea constipation shortness of breath or chest pain. CBC/BMP: 10/14/16 1114 10/15/16 1245 Significant Findings Laboratory Tests Test 10/12/16 10/13/16 10/14/16 10/14/16 16:01 05:52 06:00 11:14 Chloride Level 113 MEQ/L 116 MEQ/L 116 MEQ/L (98-107) (98-107) (98-107) Carbon Dioxide Level 20.5 MEQ/L 18.2 MEQ/L 20.9 MEQ/L (21.0-32.0) (21.0-32.0) (21.0-32.0) Blood Urea Nitrogen 21 MG/DL (7-18) 21 MG/DL (7-18) 19 MG/DL (7-18) Creatinine 2.54 MG/DL 2.77 MG/DL 2.15 MG/DL (0.50-1.00) (0.50-1.00) (0.50-1.00) Estimat Glomerular Filtration 20 ML/MIN (>89) 18 ML/MIN (>89) 24 ML/MIN (>89) Rate Calcium Level 8.3 MG/DL (8.5-10.1) Red Blood Count 3.58 MIL/MM3 3.40 MIL/MM3 (4.00-5.30) (4.00-5.30) Neutrophils (%) (Auto) 76.5 % 77.4 % (16.0-70.0) (16.0-70.0) Monocytes (%) (Auto) 10.0 % (0.0-8.0) Neutrophils # (Auto) 7.9 TH/MM3 (1.8-7.7) Monocytes # (Auto) 1.0 TH/MM3 (0-0.9) Sodium Level 146 MEQ/L (136-145) Hemoglobin 11.2 GM/DL (11.6-15.3) Hematocrit 32.7 % (35.0-46.0) Test 10/15/16 10/15/16 04:45 12:45 Chloride Level 116 MEQ/L 114 MEQ/L (98-107) (98-107) Carbon Dioxide Level 19.9 MEQ/L 20.2 MEQ/L (21.0-32.0) (21.0-32.0) Creatinine 1.67 MG/DL 1.56 MG/DL (0.50-1.00) (0.50-1.00) Estimat Glomerular Filtration 32 ML/MIN (>89) 35 ML/MIN (>89) Rate Random Glucose 72 MG/DL (74-106) Calcium Level 8.3 MG/DL 8.3 MG/DL (8.5-10.1) (8.5-10.1) Potassium Level 3.2 MEQ/L (3.5-5.1) Imaging Last Impressions Renal Ultrasound 10/14/16 0000 Signed Impressions: Service Date/Time: Friday, October 14, 2016 08:40 - CONCLUSION: 1. Normal examination. Hector Brewster MD Upper Extremity CT 10/09/16 0703 Signed Impressions: Service Date/Time: September 07:55 - CONCLUSION: Cellulitis with small abscess along the posterior elbow seen within the posterior soft tissues. Maycol Magana MD Elbow X-Ray 10/08/162034 Signed Impressions: Service Date/Time: Saturday, October 08, 2016 20:52 - CONCLUSION: Soft tissue swelling. No acute bony findings Zhou Lozano MD PE at Discharge General: No acute distress. Heart: Regular rate and rhythm. No murmur. Lungs: Clear to auscultation bilaterally. No wheezes, rales, or rhonchi. Breathing is nonlabored. Abdomen: Soft, nontender, nondistended. Extremities: No lower extremity edema. Right elbow bandaged. Psych: Alert and oriented. Hospital Course The patient was admitted for management of right upper extremity abscess/ cellulitis. Orthopedic surgery was consulted. Patient underwent incision and drainage with removal of olecranon bursa. She was continued on IV antibiotics. Infectious disease was consulted. She continued to show improvement throughout the hospitalization. She was cleared for discharge by orthopedic surgery. Arrangements were made for outpatient IV antibiotics and recommendations were made by infectious disease. She developed acute kidney injury. She was placed on IV fluids. Her creatinine improved and on the day of discharge it was continuing to trend downward. She was felt to be stable for discharge home. Pt Condition on Discharge: Stable Discharge Disposition: Discharge Home Discharge Time: > 30 minutes Discharge Instructions DIET: Follow Instructions for: As Tolerated, No Restrictions Activities you can perform: Regular-No Restrictions Follow up Referrals: Orthopedics - 10/27/16 @ [facility] with Sandeep Jenkins MD New Medications: Hydrocodone-Acetaminophen ([place]) 7.5-325 mg Tab 1 TAB PO Q4H PRN PAIN #60 Ref 0 TAB Continued Medications: Levothyroxine Sodium (Levothyroxine 125 mcg) 125 Mcg Tab 125 MCG PO DAILY #30 Ref 2 TAB Ag Christine MD October 15, 2016 14:57
[2016-10-15] MEDS ORDERED: POTASSIUM CHLORIDE 25 MEQ EFFERVESCENT TAB PO ONE (15:00)
[2016-10-20] MEDS ORDERED: ROCE1INJ3 IV (14:40)
[2016-10-20] MEDS ORDERED: SYNT25TA PO (14:40)
== END 2016-10-15 16:22 | disposition home or self-care (01) | DRG 501 ==
LOC: NEPC 19:02 → NEDA 21:40 → N05B 23:44
PROVIDERS: ADMIT Family Medicine; ATTEND Family Medicine
PROC: 0PBK0ZZ Excision of Right Ulna, Open Approach (ICD-10-PCS; 2016-10-10)
PROC: 0MT30ZZ Resection of Right Elbow Bursa and Ligament, Open Approach (ICD-10-PCS; principal; 2016-10-10 07:49)
PROC: 05H633Z Insertion of Infusion Device into Left Subclavian Vein, Percutaneous Approach (ICD-10-PCS; 2016-10-13)
PROC: B547ZZA Ultrasonography of Left Subclavian Vein, Guidance (ICD-10-PCS; 2016-10-13)
DX: M71.121 Other infective bursitis, right elbow (principal); L03.113 Cellulitis of right upper limb; N17.9 Acute kidney failure, unspecified; M71.021 Abscess of bursa, right elbow; B95.61 Methicillin susceptible Staphylococcus aureus infection as the cause of diseases classified elsewhere; E03.9 Hypothyroidism, unspecified; E87.6 Hypokalemia; Z86.14 Personal history of Methicillin resistant Staphylococcus aureus infection; F17.210 Nicotine dependence, cigarettes, uncomplicated; K59.00 Constipation, unspecified
CPT/HCPCS: 36569; 73070; 73201; 76775; 76937; 80048; 80202; 82565; 83605; 85007; 85025; 85027; 86403; 87015; 87040; 87070; 87102; 87116; 87147; 87186; 87205; 87206; 93005; 96374; 96375; J0690; J1580; J1885; J2250; J2270; J2370; J2405; J2543; J3010; J3370; J7030; J7040; J7050; Q9967